=== PATIENT | male | born 1950 | race Caucasian/White ===

== ENCOUNTER → 2018-03-17 06:42 | Outpatient (CLI) | payer OTHER, SELFPAY ==
[2018-03-17 08:53] LABS: Creatinine Urine Random 123.6 mg/dL
[2018-03-17 08:58] LABS: Microalbumi Creatinin Ratio Ur 8.8 ug/mg CR (<30); Microalbumin Urine Random 1.1 mg/dL (0-1.6)
[2018-03-17 09:06] LABS: Blood Urea Nitrogen 14 mg/dL (9-20); Calcium 9.6 mg/dL (8.4-10.2); Carbon Dioxide 30 mmol/L (22-32); Chloride 106 mmol/L (98-107); Estimated Glomerular Filt Rate > 60.0 mL/min (>60); Glucose 92 mg/dL (80-110); HEMOLYSIS < 15 (0-50); Potassium 4.8 mmol/L (3.4-5.1); Sodium 146 mmol/L (137-145)
== END ==
PROVIDERS: PCP Family Medicine; Visit Provider Family Medicine
DX: R97.20 Elevated prostate specific antigen [PSA] (principal)
CPT/HCPCS: 36415; 80048; 82043; 82570; 84153

== ENCOUNTER → 2018-12-21 13:39 | Outpatient (CLI) | payer OTHER, SELFPAY | PROVIDERS: Family Provider Family Medicine; PCP Family Medicine; Visit Provider Podiatrist | DX: Z01.818 Encounter for other preprocedural examination (principal) | CPT/HCPCS: 93005 ==

== ENCOUNTER → 2019-04-14 16:05 | Outpatient (CLI) | payer OTHER, SELFPAY ==
--- NOTE | 2019-04-14 16:08 | DI.RAD.S_ITS ---
PROCEDURE: XR ELBOW LT MIN 3V INDICATIONS: left elbow pain TECHNIQUE: 3 views of the elbow were acquired. COMPARISON: None. FINDINGS: Bones: No fractures or dislocations. No suspicious bony lesions. There is osseous fragment adjacent to medial epicondyle, likely related to medial epicondylitis. Mild degenerative joint disease in elbow. Soft tissues: No elbow joint effusion. Cannot rule out a small infarct or body adjacent to the radial head. IMPRESSION: 1. Suspect medial epicondylitis. 2. Mild degenerative joint disease. 3. Possible small interarticular bodies. 4. Possible intra-articular body adjacent to the radial head. Dictated by: Jamal Pavon M.D. on 04/14/2019 at 17:54 Approved by: Jamal Pavon M.D. on 04/14/2019 at 17:56
[2019-04-14 17:44] LABS: Add Manual Diff / Slide Review NO; Basophils Absolute Auto 0 /uL (0-100); Basophils Percent Auto 0.5 % (0-2); Eosinophils Absolute Auto 100 /uL (0-450); Eosinophils Percent Auto 1.7 % (2-4); Hematocrit 43.8 % (41-53); Hemoglobin 14.7 g/dL (13.5-17.5); Lymphocytes Absolute Auto 1800 /uL (1100-4500); Lymphocytes Percent Auto 27.3 % (25-40); Mean Corpuscular HGB Conc 33.6 % (30-36); Mean Corpuscular Hemoglobin 31.9 PG (26-34); Mean Corpuscular Volume 95.1 fL (80-100); Monocytes Absolute Auto 500 /uL (0-900); Monocytes Percent Auto 7.7 % (3-14); Neutrophils Absolute Auto 4200 /uL (1500-7000); Neutrophils Percent Auto 62.8 % (50-75); Platelet Count 328 X10^3/uL (150-400); Red Cell Distribution Width 14.6 % (11.6-14.8); White Blood Cell Count 6.7 X10^3/uL (4.5-11.0)
[2019-04-14 17:56] LABS: Uric Acid 5.2 mg/dL (3.5-8.5)
== END ==
PROVIDERS: Family Provider Family Medicine; PCP Family Medicine; Visit Provider Nurse Practitioner Family
DX: M25.522 Pain in left elbow (principal); M19.022 Primary osteoarthritis, left elbow
CPT/HCPCS: 36415; 73080; 84550; 85025

== ENCOUNTER → 2019-12-14 07:09 | Outpatient (CLI) | payer OTHER, SELFPAY ==
[2019-12-14 08:09] LABS: Add Manual Diff / Slide Review NO; Basophils Absolute Auto 0 /uL (0-100); Basophils Percent Auto 0.6 % (0-2); Eosinophils Absolute Auto 200 /uL (0-450); Eosinophils Percent Auto 3.8 % (2-4); Hematocrit 43.3 % (41-53); Hemoglobin 14.9 g/dL (13.5-17.5); Lymphocytes Absolute Auto 1700 /uL (1100-4500); Lymphocytes Percent Auto 26.9 % (25-40); Mean Corpuscular HGB Conc 34.5 % (30-36); Mean Corpuscular Hemoglobin 32.9 PG (26-34); Mean Corpuscular Volume 95.4 fL (80-100); Monocytes Absolute Auto 600 /uL (0-900); Monocytes Percent Auto 9.4 % (3-14); Neutrophils Absolute Auto 3800 /uL (1500-7000); Neutrophils Percent Auto 59.3 % (50-75); Platelet Count 324 X10^3/uL (150-400); Red Blood Cell Count 4.54 X10^6/uL (4.5-5.9); Red Cell Distribution Width 14.4 % (11.6-14.8); White Blood Cell Count 6.3 X10^3/uL (4.5-11.0)
[2019-12-14 08:23] LABS: BUN Creatinine Ratio 15.5 (6-22); Blood Urea Nitrogen 15 mg/dL (9-20); Carbon Dioxide 28 mmol/L (22-32); Chloride 108 mmol/L (98-107); Cholesterol 200 mg/dL (140-199); Estimated Glomerular Filt Rate > 60.0 mL/min (>60); Glucose 96 mg/dL (80-110); HDL Cholesterol 50 mg/dL (40-60); HEMOLYSIS < 15 (0-50); LDL Cholesterol Calculated 112 mg/dL (<100); Potassium 4.3 mmol/L (3.4-5.1); Sodium 142 mmol/L (137-145); Triglycerides 188 mg/dL (35-150)
[2019-12-14 08:51] LABS: Prostate Specific Antigen 3.62 ng/mL (0.10-4.00)
== END ==
PROVIDERS: Family Provider Family Medicine; PCP Family Medicine; Referring Provider Family Medicine; Visit Provider Family Medicine
DX: Z12.11 Encounter for screening for malignant neoplasm of colon (principal); Z12.5 Encounter for screening for malignant neoplasm of prostate; Z13.220 Encounter for screening for lipoid disorders
CPT/HCPCS: 36415; 80048; 80061; 84153; 85025

== ENCOUNTER → 2020-05-11 08:45 | Outpatient (CLI) | payer OTHER, SELFPAY ==
[2020-05-12 18:29] LABS: COVID19 Sendout Positive (Not Detect)
== END ==
PROVIDERS: Family Provider Family Medicine; PCP Family Medicine; Visit Provider Physician Assistant
DX: U07.1 COVID-19 (principal)
CPT/HCPCS: 87635

== ENCOUNTER → 2020-05-23 08:56 | Outpatient (CLI) | payer OTHER, SELFPAY ==
[2020-05-23 11:38] LABS: COVID19 -Nasal RAPID Negative (Negative)
== END ==
PROVIDERS: Family Provider Family Medicine; PCP Family Medicine; Visit Provider Physician Assistant
DX: Z11.59 Encounter for screening for other viral diseases (principal)
CPT/HCPCS: 87635

== ENCOUNTER → 2020-08-23 07:12 | Outpatient (CLI) | payer OTHER, SELFPAY ==
[2020-08-23 08:28] LABS: Add Manual Diff / Slide Review NO; Basophils Absolute Auto 0 /uL (0-100); Basophils Percent Auto 0.8 % (0-2); Eosinophils Absolute Auto 200 /uL (0-450); Eosinophils Percent Auto 3.6 % (2-4); Hematocrit 45.7 % (41-53); Hemoglobin 14.9 g/dL (13.5-17.5); Lymphocytes Absolute Auto 1400 /uL (1100-4500); Lymphocytes Percent Auto 23.2 % (25-40); Mean Corpuscular HGB Conc 32.6 % (30-36); Mean Corpuscular Hemoglobin 31.7 PG (26-34); Monocytes Absolute Auto 400 /uL (0-900); Monocytes Percent Auto 6.9 % (3-14); Neutrophils Absolute Auto 3900 /uL (1500-7000); Neutrophils Percent Auto 65.5 % (50-75); Platelet Count 293 X10^3/uL (150-400); Red Blood Cell Count 4.71 X10^6/uL (4.5-5.9); Red Cell Distribution Width 14.9 % (11.6-14.8)
[2020-08-23 08:59] LABS: Alanine Aminotransferase 21 IU/L (<50); Albumin Globulin Ratio 1.4 (1.0-2.8); Alkaline Phosphatase 55 U/L (38-126); Aspartate Aminotransferase 24 IU/L (17-59); BUN Creatinine Ratio 17.8 (6-22); Bilirubin Total 0.3 mg/dL (0.2-1.3); Blood Urea Nitrogen 18 mg/dL (9-20); Calcium 8.9 mg/dL (8.4-10.2); Carbon Dioxide 33 mmol/L (22-32); Chloride 106 mmol/L (98-107); Cholesterol 197 mg/dL (140-199); Estimated Glomerular Filt Rate > 60.0 mL/min (>60); Globulin 2.9 g/dL (1.7-4.1); Glucose 101 mg/dL (80-110); HDL Cholesterol 59 mg/dL (40-60); HEMOLYSIS < 15 (0-50); LDL Cholesterol Calculated 120 mg/dL (<100); Potassium 4.6 mmol/L (3.4-5.1); Sodium 140 mmol/L (137-145); Total Protein 6.9 g/dL (6.3-8.2); Triglycerides 89 mg/dL (35-150)
[2020-08-23 09:05] LABS: C-Reactive Protein Quant < 0.5 mg/dL (<1.0); Rheumatoid Factor < 8.6 IU/mL (<12.0)
[2020-08-23 09:26] LABS: Erythrocyte Sedimentation Rate 3 MM/HR (0-15); Prostate Specific Antigen 4.92 ng/mL (0.10-4.00)
[2020-08-27 22:36] LABS: CCP Antibodies IgG/IgA 6 units (0-19)
== END ==
PROVIDERS: Family Provider Family Medicine; PCP Family Medicine; Referring Provider Family Medicine; Visit Provider Family Medicine
DX: E78.2 Mixed hyperlipidemia (principal); I10 Essential (primary) hypertension; M25.541 Pain in joints of right hand; M25.542 Pain in joints of left hand; N40.0 Benign prostatic hyperplasia without lower urinary tract symptoms
CPT/HCPCS: 36415; 80053; 80061; 84153; 85025; 85651; 86140; 86200; 86430

== ENCOUNTER → 2020-08-25 14:56 | Outpatient (CLI) | payer OTHER, SELFPAY ==
--- NOTE | 2020-08-25 14:58 | DI.MRI.S_ITS ---
PROCEDURE: MR SHOULDER LT WO CON INDICATIONS: BURSITIS OF LEFT SHOULDER TECHNIQUE: Noncontrast oblique coronal T2 fast spin echo with fat saturation, oblique sagittal T1 spin echo and T2 fast spin echo with fat saturation, axial T1 spin echo and T2 fast spin echo with fat saturation through the shoulder. COMPARISON: [facility] [place], CR, XR SHOULDER 2+ VIEWS LEFT, 08/06/2020, 14:55. FINDINGS: Image quality: Excellent. Rotator cuff: There is full-thickness tearing of the supraspinatus tendon approximately 1 cm from its distal insertion, measuring approximately 1.5 cm in anterior-posterior dimension. There is approximately 2 mm proximal retraction of the supraspinatus tendon. There is moderate grade partial bursal sided tearing of the anterior half of the infraspinatus tendon. Findings are superimposed on tendinosis. There is moderate tendinosis and low grade intrasubstance tearing of the subscapularis tendon at the distal insertion. There is no significant rotator cuff muscle atrophy. Fluid is seen tracking medially along the supraspinatus muscle. Bones and bursae: There is no acute trabecular bone injury. Mild chronic traction cystic changes are seen at the greater tuberosity. Minimal degenerative spurring is seen in the glenoid rim. Moderate acromioclavicular degenerative changes. Fluid in the subacromial/subdeltoid bursa communicates with the glenohumeral joint space. Capsule and soft tissues: There is nondisplaced tearing of the superior labrum that likely extends into the posterior labrum. No paralabral cyst is seen. There is tendinosis of the biceps long head tendon with perching along the medial aspect of the bicipital groove. There is partial effacement of the fat in the rotator interval.The inferior glenohumeral ligament is normal in thickness. IMPRESSION: 1. Full-thickness tearing of the supraspinatus tendon approximately 1 cm from its insertion onto the greater tuberosity measuring 1.5 cm in anterior-posterior dimension. There is minimal proximal tendon retraction measuring 0.2 cm. 2. Moderate grade partial bursal sided tearing of the anterior infraspinatus tendon superimposed on tendinosis. 3. Moderate tendinosis and low grade intrasubstance tearing of the subscapularis tendon at the distal insertion. 4. Mild biceps long head tendinosis with perching along the medial aspect of the bicipital groove. 5. Nondisplaced tearing of the superior labrum that likely extends into the posterior labrum. 6. Moderate acromioclavicular joint osteoarthrosis. Dictated by: Renzo Ventura M.D. on 08/27/2020 at 10:14 Approved by: Renzo Ventura M.D. on 08/27/2020 at 10:24
== END ==
PROVIDERS: Family Provider Family Medicine; PCP Family Medicine; Referring Provider Family Medicine; Visit Provider Physical Medicine & Rehabilitation Pain Medicine
DX: M75.52 Bursitis of left shoulder (principal); M75.122 Complete rotator cuff tear or rupture of left shoulder, not specified as traumatic; M19.012 Primary osteoarthritis, left shoulder
CPT/HCPCS: 73221

== ENCOUNTER → 2021-07-31 09:58 | Outpatient (CLI) | payer OTHER, SELFPAY ==
[2021-07-31 12:02] LABS: COVID19 -Nasal RAPID Negative (Negative)
== END ==
PROVIDERS: Family Provider Family Medicine; PCP Family Medicine; Visit Provider Surgery
DX: Z01.812 Encounter for preprocedural laboratory examination (principal); Z20.822 Contact with and (suspected) exposure to COVID-19
CPT/HCPCS: 87635; C9803

== ENCOUNTER 2021-08-01 06:25 | Day surgery (SDC) | payer OTHER, SELFPAY ==
--- NOTE | 2021-08-01 | PATH_ITS ---
[facility] Accession Number: [id number] . 01 Material submitted: . PART A: colon - ASCENDING COLON POLYPS X3 PART B: colon - TRANSVERSE COLON POLYP @ 75 CM PART C: colon - SIGMOID COLON POLYP @ 30 CM . 02 Diagnosis: A. Ascending Colon Polyps x3: Portions of tubular adenoma x3. . B. Transverse Colon Polyp at 75 cm: Tubular adenoma. . C. Sigmoid Colon Polyp at 30 cm: Tubular adenoma. MRV 08/05/2021 1126 Local . 02 Electronically signed: . Lillian Mcnally MD, Pathologist NPI- [id number] . 01 Gross description: . Part A: ASCENDING COLON POLYPS X3: Received in formalin are 3 fragment(s) of mata, soft tissue measuring 0.6 x 0.4 x 0.3 cm to 0.4 x 0.3 x 0.3 cm submitted entirely in 1 cassette(s) Part B: TRANSVERSE COLON POLYP @ 75 CM: Received in formalin is 1 fragment(s) of mata, soft tissue measuring 0.9 x 0.8 x 0.5 cm which is inked, trisected and submitted entirely in 1 cassette(s) Part C: SIGMOID COLON POLYP @ 30 CM: Received in formalin is 1 fragment(s) of mata, soft tissue measuring 0.3 x 0.3 x 0.3 cm submitted entirely in 1 cassette(s) /[facility] 08/02/2021 1253 Local . 02 Pathologist provided ICD-10: K63.5 . 02 CPT . 346929, 576196, 313295 Performed at: 01 [facility] [address], [place], [place] [id number] MD Carl Crabtree MD Phone: [phone] Performed at: 02 [facility] [id number] [place] [id number] MD Alessia Moser MD Phone: [phone]
[2021-08-01 06:44] VITALS: BP 139/74; PULSE 93; RESP 18; TEMP 36.8; O2SAT 95; BMI 29.0
[2021-08-01] MEDS: LACTATED RINGERS 1,000 ML 84 ML IV (06:56)
--- NOTE | 2021-08-01 08:09 | PM.HP.1 ---
History of Present Illness History of Present Illness Date Patient Seen: 08/01/21 Time Patient Seen: 08:09 Chief complaint: SDC Narrative: 71-year-old man who had a colonoscopy about 9 years ago. Had no concerning findings that time he believes. He believes his dad had colon cancer. No rectal bleeding or melena. No other concerning changes to his history recently. Patient History Medical History (Updated 08/01/21 @ 08:11 by Harley Cameron MD) Actinic keratoses Actinic keratosis Acute upper back pain Anxiety Benign prostatic hyperplasia BPH (benign prostatic hyperplasia) Cervical somatic dysfunction Cervicothoracic somatic dysfunction Chronic neck pain Constipation due to opioid therapy Dermatochalasis of both eyelids Fracture of left tibia and fibula GERD (gastroesophageal reflux disease) Hyperlipidemia, mixed Hypertension Joint pain in both hands Left arm pain Plantar fasciitis of left foot Rupture of left rotator cuff Sebaceous cyst Segmental and somatic dysfunction of thoracic region Segmental and somatic dysfunction of upper extremity Trigger finger of both hands Umbilical hernia (~04/2012) Undescended right testicle Surgical History History of esophagogastroduodenoscopy (EGD) (05/2009) History of open reduction and internal fixation (ORIF) procedure Hx of hernia repair (04/2012) Family & Social History Family History (Updated 03/30/18 @ 09:32 by Puja Thomas LPN) Father Prostate cancer Colon cancer Brother Cancer Social History: household members spouse Tobacco & Substance use: Tobacco type cigarettes Smoking Status Current every day smoker alcohol intake current alcohol intake frequency 0-2 drinks per day Substance Use Type does not use Meds Home Medications and Allergies Home Medications Medication Instructions Recorded Confirmed Type triamcinolone acetonide 0.1 % 1 applictn TOPICAL HS #15 gram 10/31/19 05/09/21 Rx topical cream varicella-zoster glycoE [id number] 0.5 ml IM ONCE #1 ea 07/18/20 05/09/21 Rx adj(PF) 50 mcg/0.5 mL IM susp, kit (Shingrix (PF)) lidocaine 5 % topical patch 1 patch TRANSDERMAL DAILY ea 08/22/20 05/09/21 History losartan 50 mg tablet See Rx Instructions .ROUTE 06/05/21 Rx .COMPLEX #90 tab pantoprazole 40 mg tablet,delayed See Rx Instructions .ROUTE 06/05/21 Rx release .COMPLEX #90 tab tamsulosin 0.4 mg capsule See Rx Instructions .ROUTE 06/05/21 Rx .COMPLEX #180 cap Allergies Allergy/AdvReac Type Severity Reaction Status Date / Time lactose [LACTOSE] AdvReac Intermediate BLOATED Verified 08/01/21 06:40 Exam Vital Signs (past 8 hours): - 08/01/21 06:44 Temperature 98.3 F Pulse Rate 93 H Respiratory Rate 18 Blood Pressure 139/74 Pulse Oximetry 95 Oxygen Delivery Method Room Air Const General: healthy appearing Resp Effort & Inspection: normal respiratory effort GI Palpation: soft Assessment & Plan Assessment and plan (1) Colon cancer screening: Status: Acute Plan We reviewed the risks and benefits of colonoscopy for colon cancer screening. He would like to proceed. The procedure is necessary to perform because if he has colon cancer timely diagnosis is important to prevent deterioration of health or potentially . COVID-19 COVID-19 status: Negative Result date/Date tested (Pos, Neg/Pending): 08/01/21 Time Spent With Patient Critical Care time: I spent a total of [] minutes of critical care time on this patient's care today; this time is exclusive of procedural time.
[2021-08-01] MEDS: MIDAZOLAM 5 MG/5 ML VIAL IV (08:33)
[2021-08-01] MEDS: fentaNYL 250 MCG/5 ML INJ IV (08:33)
--- NOTE | 2021-08-01 09:32 | PM.OP.COLON ---
Operative Date/Time/Diagnoses Date of procedure: 08/01/21 Time of procedure: 09:32 Pre-op diagnosis: Colon cancer screening Post-op diagnosis: same Procedure & Clinicians Study performed: Colonoscopy Same procedure as scheduled: Yes Surgeon: Harley Cameron Procedure Notes SCOAP/Timeout: Yes Procedure in detail: Procedure: The patient was brought to the endoscopy suite, placed in left lateral decubitus position. The patient was connected to monitoring devices. A time-out was performed. Sedation was administered. Once the patient was adequately sedated, a digital rectal exam was performed and was normal. The scope was then inserted and advanced to the cecum where the appendiceal orifice was identified and photographed. The scope was then slowly withdrawn over greater than 6 minutes. Mucosa was thoroughly inspected. We noted 3 small polyps in the ascending colon. We removed these with cold snare and sent them together. Next we found a polyp in the transverse colon at roughly 75 cm which was about a cm and flat. We performed a saline lift and removed the polyp with hot snare. There was the fragment of plastic from the injection device that became dislodged and remained in the colon. We then brought in the Leonardo Net and attempted to capture the polyp and the plastic fragment at the same time but we could only capture the polyp. This polyp was removed and sent as ?sigmoid polyp?. We went back in and this time we used a Jumbo forceps to grab the plastic fragment and removed it from the colon. This appeared to be a protective cover that was over the injection needle which had not been removed. We then went back in and placed in ink tattoo across from the polypectomy site in the transverse colon. The scope was further withdrawn. There were multiple small sigmoid diverticula. There was a small polyp in the sigmoid colon which was removed with cold snare and sent as sigmoid polyp. The remainder of the colon and rectum were normal. The scope was retroflexed in the rectum. No abnormalities were noted there. The scope was straightened and removed. The patient was awakened and brought to recovery. Findings: 3 small ascending colon polyps less than a cm, 1 cm transverse colon polyp, small sigmoid colon polyp was less than a cm and scattered sigmoid diverticula. Versed: 6 mg Fentanyl: 175 mcg EBL: 5 mL Scope withdrawal time: 51 Sedation minutes: 75 Findings: divertiulosis and polyp(s) Post-procedure Recommendations: Will call with biopsy results
[2021-08-01 09:33] VITALS: BP 103/61; PULSE 70; RESP 16; TEMP 37; O2SAT 94
[2021-08-01 09:53] VITALS: BP 112/61; PULSE 69; RESP 18; TEMP 36.7; O2SAT 95
--- NOTE | 2021-08-01 10:13 | SUR.PHASEII ---
Was in the endoscopy for 1 1/2 hours. Last dose of sedation 1 hour prior to dropping off in recovery. Sent to phase II bypassing phase I. Perfectly stable. Sent home in half an hour
== END 2021-08-01 10:03 | disposition home or self-care (01) ==
PROVIDERS: Family Provider Family Medicine; PCP Family Medicine; Referring Provider Surgery; Visit Provider Surgery
PROC: 0DJD8ZZ Inspection of Lower Intestinal Tract, Via Natural or Artificial Opening Endoscopic (ICD-10-PCS; CPT 45378; principal; 2021-08-01 07:45)
DX: Z12.11 Encounter for screening for malignant neoplasm of colon (principal); E78.5 Hyperlipidemia, unspecified; I10 Essential (primary) hypertension; K21.9 Gastro-esophageal reflux disease without esophagitis; F17.210 Nicotine dependence, cigarettes, uncomplicated; D12.2 Benign neoplasm of ascending colon; D12.3 Benign neoplasm of transverse colon; D12.5 Benign neoplasm of sigmoid colon
CPT/HCPCS: 45381; 45385; 99152; 99153; J2250; J3010

== ENCOUNTER → 2022-02-06 14:31 | Outpatient (CLI) | payer OTHER, SELFPAY ==
--- NOTE | 2022-02-06 14:34 | DI.RAD.S_ITS ---
PROCEDURE: XR HAND LT MIN 3V INDICATIONS: chronic left hand numbness and pain, past left hand surgery TECHNIQUE: 3 views of the hand(s) acquired. COMPARISON: None. FINDINGS: Bones: No fractures or dislocations. Carpal bones are normally aligned. No suspicious bony lesions. Mild 2nd and 3rd MCP joint space narrowing with periarticular osteophyte formation and juxta-articular lucencies. Hook osteophytes are present. Soft tissues: No suspicious soft tissue calcifications. IMPRESSION: 1. 2nd and 3rd MCP joint space narrowing with juxta-articular lucencies and hook osteophytes which can be associated with inflammatory arthropathy. Dictated by: Maulik Crowder [facility] Interpreted: Yuliana Faria MD on 02/06/2022 at 15:47 Transcribed by: BRE on 02/06/2022 at 15:48 Approved by: Yuliana Faria M.D. on 02/06/2022 at 17:28
== END ==
PROVIDERS: Family Provider Family Medicine; PCP Family Medicine; Referring Provider Pediatrics; Visit Provider Pediatrics
DX: M79.642 Pain in left hand (principal); M25.742 Osteophyte, left hand
CPT/HCPCS: 73130

== ENCOUNTER → 2022-11-25 10:33 | Outpatient (CLI) | payer OTHER, SELFPAY ==
--- NOTE | 2022-11-25 10:34 | DI.RAD.S_ITS ---
PROCEDURE: XR CHEST 2V INDICATIONS: pain TECHNIQUE: 2 views of the chest were acquired. COMPARISON: [facility], , CHEST 2 VIEW, 02/07/2015, 8:51. FINDINGS: Surgical changes and devices: None. Lungs and pleura: Lungs are clear. No pleural effusions or pneumothorax. Mediastinum: Mediastinal contours are normal. Heart size is mildly enlarged. Bones and chest wall: No suspicious bony abnormalities. Soft tissues appear unremarkable. IMPRESSION: No acute pulmonary process. Dictated by: Yuliana Faria M.D. on 11/25/2022 at 17:49 Approved by: Yuliana Faria M.D. on 11/25/2022 at 17:49
== END ==
PROVIDERS: Family Provider Family Medicine; PCP Family Medicine; Referring Provider Family Medicine; Visit Provider Family Medicine
DX: R07.81 Pleurodynia (principal)
CPT/HCPCS: 71046

== ENCOUNTER → 2023-04-25 13:05 | Outpatient (CLI) | payer OTHER, SELFPAY | PROVIDERS: Family Provider Family Medicine; PCP Family Medicine; Visit Provider Registered Nurse | DX: R30.0 Dysuria (principal) | CPT/HCPCS: 87077; 87086; 87186 ==

== ENCOUNTER → 2023-05-14 15:04 | Outpatient (CLI) | payer OTHER, SELFPAY ==
[2023-05-14 18:30] LABS: Blood Urea Nitrogen 15 mg/dL (9-20); Calcium 8.9 mg/dL (8.4-10.2); Carbon Dioxide 26 mmol/L (22-32); Chloride 106 mmol/L (98-107); Estimated Glomerular Filt Rate > 60 mL/min (>60); Glucose 83 mg/dL (80-110); HEMOLYSIS < 15 (0-50); Potassium 4.5 mmol/L (3.4-5.1); Sodium 139 mmol/L (137-145)
[2023-05-14 19:00] LABS: Prostate Specific Antigen Scrn 4.06 ng/mL (0.1-4.0)
== END ==
PROVIDERS: Family Provider Family Medicine; PCP Family Medicine; Referring Provider Urology; Visit Provider Urology
DX: Z12.5 Encounter for screening for malignant neoplasm of prostate (principal); N30.01 Acute cystitis with hematuria; N40.1 Benign prostatic hyperplasia with lower urinary tract symptoms; R39.198 Other difficulties with micturition; R39.12 Poor urinary stream; R30.0 Dysuria; R82.81 Pyuria; Z72.0 Tobacco use
CPT/HCPCS: 36415; 51798; 80048; 81002; 87086; 99214; G0103

== ENCOUNTER → 2023-05-22 12:42 | Outpatient (CLI) | payer OTHER, SELFPAY ==
--- NOTE | 2023-05-22 12:43 | DI.CT.S_ITS ---
PROCEDURE: CT ABDOMEN PELVIS WO/W CON INDICATIONS: Gross hematuria, tobacco use TECHNIQUE: Optional 5 mm thick noncontrast images acquired from the diaphragm to the symphysis pubis. After the administration of intravenous contrast, 5 mm thick images acquired from the diaphragm to the symphysis pubis after a 10-minute delay. 2 mm thick coronal and sagittal reformats were then performed of the kidneys and ureters. For radiation dose reduction, the following was used: automated exposure control, adjustment of mA and/or kV according to patient size. COMPARISON: None. FINDINGS: Image quality: Excellent. Lung bases: Lung bases are clear. Heart size is normal. Urinary system: Both kidneys are normal in size, without hydronephrosis or nephrolithiasis on pre-contrast images. No perinephric fat stranding. There is normal bilateral renal enhancement. Several water density simple appearing renal cortical cysts are seen bilaterally. Renal calyces appear normal in morphology when filled with contrast. There are several small right-sided peripelvic cysts. Opacified portions of both ureters demonstrate normal caliber. Bladder wall thickness is generally normal, but there is a subtle finding of slight asymmetric thickening of the periureteral bladder wall internally adjacent to the right side ureteral orifice. No calcified bladder stones. Note is made of a 2.7 cm left posterolateral bladder wall diverticulum communicating with the bladder lumen through a 5 mm diameter orifice. Other solid organs: Liver is normal in size and enhancement. Gallbladder appears to contain scattered faintly calcified gallstones but no inflammation or biliary distension is seen. Biliary system is non dilated. Pancreas enhances normally. Spleen is normal in size and enhancement. No adrenal nodules. Peritoneum and bowel: Bowel loops demonstrate normal wall thickness and caliber. No free fluid or air. Nodes and vessels: No retroperitoneal or mesenteric adenopathy by size criteria. Aorta and inferior vena cava are normal in size. Abdominal wall: No ventral hernias. Pelvis: No pathologic free pelvic fluid. No inguinal hernias or adenopathy. Bones: No suspicious bony lesions. No vertebral body compression fractures. IMPRESSION: 1. No urinary tract stone is seen throughout. 2. There is a subtle plaque-like thickening with slight nodularity at the right posterolateral bladder mucosal surface at and immediately adjacent to the right ureteral orifice. Note is also made of a small left posterolateral bladder diverticulum which communicates to the bladder lumen through a 5 mm orifice. 3. Multiple slightly calcified gallstones are suspected within the gallbladder lumen, and would be more accurately assessed by targeted gallbladder ultrasound. No gallbladder inflammation or biliary dilatation is seen. Dictated by: Emanuel Swann M.D. on 05/22/2023 at 15:27 Approved by: Emanuel Swann M.D. on 05/22/2023 at 15:37
== END ==
PROVIDERS: Family Provider Family Medicine; PCP Family Medicine; Referring Provider Urology; Visit Provider Urology
DX: N32.3 Diverticulum of bladder (principal); K80.20 Calculus of gallbladder without cholecystitis without obstruction; R31.0 Gross hematuria; Z72.0 Tobacco use
CPT/HCPCS: 74178; Q9967

== ENCOUNTER → 2023-07-01 14:10 | Outpatient (CLI) | payer OTHER, SELFPAY | PROVIDERS: Family Provider Family Medicine; PCP Family Medicine; Visit Provider Urology | DX: R31.0 Gross hematuria (principal); N32.3 Diverticulum of bladder | CPT/HCPCS: 51798; 52000; 81002; 87086 ==

== ENCOUNTER → 2023-07-16 14:13 | Outpatient (CLI) | payer OTHER, SELFPAY | PROVIDERS: Family Provider Family Medicine; PCP Family Medicine; Visit Provider Urology | DX: R31.0 Gross hematuria (principal); N40.1 Benign prostatic hyperplasia with lower urinary tract symptoms; R39.12 Poor urinary stream; N32.9 Bladder disorder, unspecified; Z72.0 Tobacco use | CPT/HCPCS: 81002; 87077; 87086; 87147; 87186; 99214 ==

== ENCOUNTER 2023-07-21 09:21 | Day surgery (SDC) | payer OTHER, SELFPAY ==
[2023-07-17 10:33] VITALS: BMI 28.3
--- NOTE | 2023-07-21 | PATH_ITS ---
[facility] Accession Number: [id number] No. of containers..01 Tissue . 01 Material submitted: . bladder - BLADDER LESION . 01 Diagnosis: Bladder Lesion, Biopsy: Minute fragment of squamous epithelium with no significant pathologic alterations, compatible with metaplastic changes. No dysplasia or malignancy. MRV 07/24/2023 1517 Local . 01 Comment: As part of ongoing associate quality engineer, this case is also reviewed by Dr. Florencio Jarquin, who concurs with the given interpretation. . 01 Electronically signed: . Rosa Maria Cuba MD, Pathologist NPI- [id number] . 01 Gross description: . BLADDER LESION: Received in formalin is 1 fragment(s) of mata, soft tissue measuring 0.1 x 0.1 x 0.1 cm submitted entirely in 1 cassette(s) /LAST 07/22/2023 2246 Local . 01 Pathologist provided ICD-10: N32.3 . 01 CPT . 910488 Specimen Comment: A courtesy copy of this report has been sent to [phone] Performed at: 01 [facility] [address] [place] [address], [place], [place] [id number] MD Carl Crabtree MD Phone: [phone]
[2023-07-21 09:53] VITALS: BMI 28.8
[2023-07-21 10:09] VITALS: BP 139/82; PULSE 92; RESP 17; TEMP 36.2; O2SAT 97
--- NOTE | 2023-07-21 10:15 | PM.PREOP ---
Pre-operative Note COVID-19 COVID-19 status: Not tested Interval Note History & Physical reviewed/Exam performed by Physician: Yes Changes to H&P: No
[2023-07-21] MEDS: ALBUTEROL/IPRATROPIUM 3 ML AMPUL INH (10:16)
[2023-07-21] MEDS: ACETAMINOPHEN 325 MG TABLET 975 MG PO (10:17)
[2023-07-21] MEDS: LACTATED RINGERS 1,000 ML 42 ML IV (10:18)
--- NOTE | 2023-07-21 10:18 | SUR.PREOP ---
See order for Duoneb after talking to Jodi OLIVERA on telephone in OR#4. Pt used spriva this am but not albuterol. Small expiratory wheeze right upper and lower posterior lobe
--- NOTE | 2023-07-21 10:23 | SUR.OPER ---
Lithotomy on padded OR bed, head on pillow, arms secured on padded arm boards at <90 degrees abduction. Legs secured in padded yellow fins stirrups.
[2023-07-21] MEDS: CEFAZOLIN 2 GM/100 ML PREMIX 100 ML IV (10:35)
--- NOTE | 2023-07-21 11:17 | PM.OP.1 ---
Procedure & Clinicians Procedure: Removal/biopsy of bladder lesion Same procedure as scheduled: Yes Indications: This 73-year-old male presented for workup of hematuria was found to have in a left sided diverticula abnormal appearing mucosa/bladder lesion. He presents at this time for biopsy/removal of this area. Surgeon: Gilbert Kowalski Click Yes if Unassisted: Yes Anesthesia Type: General Operative Notes Findings: Urethral meatus and urethra normal with normal mucosa. Sphincter as well coapted. The prostate exhibits moderate approaching severe obstructive character with a high bladder neck. Ureteral orifices in normal position with clear efflux. The left lateral wall there is a diverticula the mucosa of which is somewhat abreu fluffy abnormal compared to the surrounding tissue. The diverticula appears to abut 1 of the iliac vessels has a pulsation is observed within the bladder there are no other mucosal lesions that are worrisome. There are other diverticula. Of note the area was likely incompletely resected. Closure Type: not applicable Specimen(s): other (Biopsy bladder lesion) Prosthetic devices, grafts, tissues, transplants, or devices: None Estimated Blood Loss (mL): 5 Blood products transfused: none Procedure in detail: Procedure in detail: After informed consent was obtained, the patient was identified brought to the operating room where he was placed in a supine position on the operative table. Once there he had anesthesia induced and maintained. Showing an adequate level of anesthesia the patient was transitioned to the lithotomy position where he was prepped, draped, prepared for Transurethral procedure. After prepping, draping, ensuring an adequate level of anesthesia, time-out, antibiotics a 22 [place]an cystoscope was passed through the urethra and into the bladder where cystoscopy was performed. With the area identified the continuous-flow resectoscope was inserted and the loop was used to ?scraped? the lesion free. This was less than satisfactory and that it made difficult to collect the sample. At this point the resectoscope was exchanged for a cystoscope and a biopsy forceps inserted and some of the loose material and mucosa of was then biopsied away with the biopsy forceps. A Bugbee electrode was then inserted and the bleeding vessels were judiciously cauterized giving the location and proximity to what appeared to be the iliac vessel just under the bladder wall. With this the bleeding was stopped hemostasis was achieved. Most of the lesion had been removed with the loop and being satisfied with this and fearing complications with the iliac vessel the procedure at this point was stopped. The bladder was filled drained filled drained hemostasis remained good the bladder was drained the scope was removed and the patient was awakened having tolerated the procedure well the specimen was forwarded to pathology for examination. There were no complications patient was transferred to the postanesthesia care unit for recovery. Complications: none Post-operative Condition: stable Disposition: PACU Plan for aftercare: Patient to follow up my office in approximately 10-14 days
[2023-07-21 11:20] VITALS: BP 100/59; PULSE 69; RESP 9; TEMP 36.6; O2SAT 97
[2023-07-21 11:25] VITALS: BP 113/65; PULSE 64; RESP 12; O2SAT 99
[2023-07-21 11:30] VITALS: BP 110/64; PULSE 71; RESP 14; O2SAT 92
== END 2023-07-21 12:05 | disposition home or self-care (01) ==
PROVIDERS: Family Provider Family Medicine; PCP Family Medicine; Referring Provider Urology; Visit Provider Urology
PROC: 0TBB8ZZ Excision of Bladder, Via Natural or Artificial Opening Endoscopic (ICD-10-PCS; CPT 52235; principal; 2023-07-21 11:00)
DX: N32.3 Diverticulum of bladder (principal); N32.89 Other specified disorders of bladder; Z72.0 Tobacco use; R31.0 Gross hematuria; N40.1 Benign prostatic hyperplasia with lower urinary tract symptoms; R39.12 Poor urinary stream
CPT/HCPCS: 52235; 82962; J0690; J1100; J1885; J2405; J3010

== ENCOUNTER → 2023-10-19 11:13 | Outpatient (CLI) | payer OTHER, SELFPAY ==
[2023-10-19 12:11] LABS: Add Manual Diff / Slide Review NO; Basophils Absolute Auto 0 /uL (0-100); Basophils Percent Auto 0.7 % (0-2); Eosinophils Absolute Auto 200 /uL (0-450); Eosinophils Percent Auto 2.7 % (2-4); Hematocrit 46.9 % (41-53); Hemoglobin 15.9 g/dL (13.5-17.5); Lymphocytes Absolute Auto 1500 /uL (1100-4500); Mean Corpuscular HGB Conc 33.9 % (30-36); Mean Corpuscular Hemoglobin 33.1 PG (26-34); Mean Corpuscular Volume 97.6 fL (80-100); Monocytes Absolute Auto 500 /uL (0-900); Monocytes Percent Auto 8.8 % (3-14); Neutrophils Absolute Auto 3900 /uL (1500-7000); Neutrophils Percent Auto 63.8 % (50-75); Platelet Count 277 X10^3/uL (150-400); Red Cell Distribution Width 14.9 % (11.6-14.8); White Blood Cell Count 6.1 X10^3/uL (4.5-11.0)
[2023-10-19 12:24] LABS: Alanine Aminotransferase 18 IU/L (<50); Albumin 3.7 g/dL (3.5-5.0); Albumin Globulin Ratio 1.3 (1.0-2.8); Alkaline Phosphatase 69 U/L (38-126); Aspartate Aminotransferase 19 IU/L (17-59); BUN Creatinine Ratio 18.3 (6-22); Bilirubin Total 0.5 mg/dL (0.2-1.3); Blood Urea Nitrogen 17 mg/dL (9-20); Calcium 8.9 mg/dL (8.4-10.2); Carbon Dioxide 29 mmol/L (22-32); Chloride 109 mmol/L (98-107); Cholesterol 201 mg/dL (140-199); Estimated Glomerular Filt Rate > 60 mL/min (>60); Globulin 2.8 g/dL (1.7-4.1); Glucose 114 mg/dL (80-110); HDL Cholesterol 59 mg/dL (40-60); HEMOLYSIS < 15 (0-50); LDL Cholesterol Calculated 132 mg/dL (<100); Potassium 4.6 mmol/L (3.4-5.1); Sodium 141 mmol/L (137-145); Total Protein 6.5 g/dL (6.3-8.2); Triglycerides 50 mg/dL (35-150)
[2023-10-19 13:30] LABS: Creatinine Urine Random 118.1 mg/dL
[2023-10-19 13:34] LABS: Microalbumi Creatinin Ratio Ur 6.7 ug/mg CR (<30); Microalbumin Urine Random 0.8 mg/dL (0-1.6)
[2023-10-19 20:17] LABS: TSH w/ Reflex to FT4 0.79 uIU/mL (0.47-4.68)
== END ==
PROVIDERS: Family Provider Family Medicine; PCP Family Medicine; Referring Provider Physician Assistant; Visit Provider Physician Assistant
DX: I10 Essential (primary) hypertension (principal); E78.2 Mixed hyperlipidemia; J44.9 Chronic obstructive pulmonary disease, unspecified; Z72.0 Tobacco use
CPT/HCPCS: 36415; 80053; 80061; 82043; 82570; 84443; 85025

== ENCOUNTER → 2023-10-19 12:08 | Outpatient (CLI) | payer OTHER, SELFPAY ==
--- NOTE | 2023-10-19 12:09 | DI.RAD.S_ITS ---
PROCEDURE: XR KNEE RT 3V INDICATIONS: posterior lateral R knee pain;sensation of giving way TECHNIQUE: 3 views of the knee were acquired. COMPARISON: None. FINDINGS: Bones: No fractures or dislocations. Tiny osteophytes at the lateral and patellofemoral compartments. No suspicious bony lesions. Soft tissues: Small joint effusion. No suspicious soft tissue calcifications. Chondrocalcinosis. IMPRESSION: [id number] right knee DJD. Small joint effusion. Chondrocalcinosis. Dictated by: Oneal Yousif M.D. on 10/19/2023 at 16:33 Approved by: Oneal Yousif M.D. on 10/19/2023 at 16:49
== END ==
PROVIDERS: Family Provider Family Medicine; PCP Family Medicine; Referring Provider Physician Assistant; Visit Provider Physician Assistant
DX: M17.11 Unilateral primary osteoarthritis, right knee (principal); M71.20 Synovial cyst of popliteal space [Baker], unspecified knee; M25.461 Effusion, right knee; M11.261 Other chondrocalcinosis, right knee; M25.561 Pain in right knee; I10 Essential (primary) hypertension; E78.2 Mixed hyperlipidemia; J44.9 Chronic obstructive pulmonary disease, unspecified; Z72.0 Tobacco use
CPT/HCPCS: 36415; 73562; 80053; 80061; 82043; 82570; 84443; 85025

== ENCOUNTER → 2023-11-11 14:13 | Outpatient (CLI) | payer OTHER, SELFPAY | PROVIDERS: Family Provider Family Medicine; PCP Family Medicine; Visit Provider Urology | DX: R39.9 Unspecified symptoms and signs involving the genitourinary system (principal) | CPT/HCPCS: 81002; 87086 ==

== ENCOUNTER → 2023-11-12 11:39 | Outpatient (CLI) | payer OTHER, SELFPAY ==
--- NOTE | 2023-11-12 11:40 | DI.MRI.S_ITS ---
PROCEDURE: MR LUMBAR SPINE WO CON INDICATIONS: Radiculopathy, lumbar region TECHNIQUE: Noncontrast sagittal T1 spin echo and T2 fast echo, sagittal STIR, and T2 fast spin echo through the lumbar spine. In cases with scoliosis, additional coronal T2 fast spin echo may be performed. COMPARISON: [facility], CR, XR LUMBAR SPINE 2 OR 3 VIEWS, 06/15/2023, 15:58. FINDINGS: Image quality: Diagnostic, with note made of motion artifact. Alignment and Curvature: There is mild retrolisthesis seen at L1-L2 and L2-L3. Bone Marrow: Marrow is of normal overall signal. No acute vertebral body compression fractures. Spinal Cord: Conus medullaris terminates at the L1 level. Visualized cord demonstrates normal signal and size. Paraspinous Soft Tissues: No paravertebral masses. Water signal left renal cysts can be seen. T12-L1: Feit-im-wegowgud loss of disc height and disc signal can be seen. No significant neural foraminal or central canal narrowing can be seen. L1-L2: Moderate loss of disc height is seen. Loss of disc signal is seen. Moderate generalized disc bulge is seen. There is a superimposed central disc protrusion. Mild facet joint hypertrophy is seen. There is at least moderate bilateral neural foraminal narrowing. Mild central canal narrowing is seen. L2-L3: Mild loss of disc height is seen. Loss of disc signal is seen. Moderate generalized disc bulge is seen. There is a superimposed central disc protrusion. Mild facet joint hypertrophy is seen. Moderate bilateral neural foraminal narrowing can be seen, left worse than right. Moderate central canal narrowing is seen. L3-L4: Moderate loss of disc height is seen. Loss of disc signal is seen. Reactive marrow endplate changes are seen posteriorly, which are hyperintense on T1-weighted and T2-weighted imaging and most consistent with fatty metaplasia (Modic type II changes). Moderate to prominent disc bulge is seen. There is a central disc osteophyte protrusion. Moderate facet hypertrophy can be seen, left worse than right. There is moderate to severe bilateral neural foraminal narrowing seen, with an associated degree of compression seen upon the exiting nerve roots. Moderate to severe central canal narrowing is seen, as on series 5, image 20. L4-L5: Mild loss of disc height is seen. Loss of disc signal is seen. Moderate disc bulge is seen, which is eccentric to the right. There is a superimposed central disc protrusion. Moderate to prominent facet hypertrophy is seen. There is moderate to severe bilateral neural foraminal narrowing seen, with an associated degree of compression seen upon the exiting nerve roots. Moderate central canal narrowing is seen. L5-S1: The disc height and disk signal are relatively well-preserved. Mild generalized disc bulge is seen. Mild facet joint hypertrophy is seen. No significant neural foraminal or central canal narrowing can be seen. IMPRESSION: Multiple levels of lumbar spine degenerative change can be seen, which are overall worst at the L3-L4 level. Dictated by: Ethan Alvarez M.D. on 11/12/2023 at 16:09 Approved by: Ethan Alvarez M.D. on 11/12/2023 at 16:14
== END ==
PROVIDERS: Family Provider Family Medicine; PCP Family Medicine; Referring Provider Physical Medicine & Rehabilitation; Visit Provider Physical Medicine & Rehabilitation
DX: M48.061 Spinal stenosis, lumbar region without neurogenic claudication (principal); M47.26 Other spondylosis with radiculopathy, lumbar region; M47.27 Other spondylosis with radiculopathy, lumbosacral region; M51.16 Intervertebral disc disorders with radiculopathy, lumbar region; M51.17 Intervertebral disc disorders with radiculopathy, lumbosacral region; N28.1 Cyst of kidney, acquired
CPT/HCPCS: 72148

== ENCOUNTER → 2023-11-25 14:20 | Outpatient (CLI) | payer OTHER, SELFPAY | PROVIDERS: Family Provider Family Medicine; PCP Family Medicine; Visit Provider Urology | DX: R39.9 Unspecified symptoms and signs involving the genitourinary system (principal) | CPT/HCPCS: 87086 ==

== ENCOUNTER → 2023-12-22 15:22 | Outpatient (CLI) | payer OTHER, SELFPAY ==
[2023-12-22 18:29] LABS: Prostate Specific Antigen 6.03 ng/mL (0.10-4.00)
== END ==
PROVIDERS: Family Provider Family Medicine; PCP Family Medicine; Referring Provider Urology; Visit Provider Urology
DX: R97.20 Elevated prostate specific antigen [PSA] (principal)
CPT/HCPCS: 36415; 84153

== ENCOUNTER → 2023-12-31 08:22 | Outpatient (CLI) | payer OTHER, SELFPAY ==
--- NOTE | 2023-12-31 08:23 | DI.MRI.S_ITS ---
PROCEDURE: MR PELVIC PROSTATE PROTOCOL INDICATIONS: Elevated PSA TECHNIQUE: Coronal HASTE, axial T1 FSE with fat saturation, 3-plane nonbreath-hold T2 FSE. After the administration of contrast, dynamic axial, delayed axial and coronal VIBE or 2-D FLASH with fat saturation through the pelvis. Diffusion weighted imaging and ADC was performed. COMPARISON: None. FINDINGS: Image quality: There is some technical artifact on a few sequences obscuring optimal visualization of the prostate gland in all sequences.. Prostate: Gland size is 5.4 x 4.8 x 5.8 cm; ellipsoid gland volume is 78 mL. Given the PSA of 6.03, PSA density is 0.08. Lesion 1: Location: Right lateral transition zone extending into the peripheral zone at the mid gland level, on axial series four, image 14 and coronal series five, image 15. Size: 1.1 cm. T2W signal: Mild to moderately hypointense, indistinct margin DWI signal: Normal ADC signal: Markedly hypointense Enhancement: Yes Extracapsular extension: No PI-RADS score: Three Lesion 2: Location: Left anterior and lateral transition zone at the mid gland level., on axial series four, image 12 and coronal series five, image 10. Size: Roughly 3.8 cm in maximal oblique AP diameter. T2W signal: Moderately hypointense DWI signal: Normal ADC signal: Moderately hypointense Enhancement: No Extracapsular extension: There is blurring of the pseudo capsule and possible bulging of the capsule posterolaterally, see series 4, image 13. PI-RADS score: Three Genitourinary system: Bladder wall thickness is normal. Narrow necked small left lateral bladder diverticulum. Partially seen left hydrocele. Distal ureters are non distended. Bowel and peritoneum: No pathologic free pelvic fluid. Inferior colon and small bowel loops are normal in caliber. Extensive sigmoid colon diverticulosis. Nodes and vessels: Borderline 0.7 cm right common femoral lymph node., series 4, image 5. 0.8 cm right pelvic sidewall lymph node, series 21, image 72. Soft tissues: Small bilateral fat containing inguinal hernias. Bones: There is abnormal signal along the anterior inferior aspect of both sacroiliac joints, right more prominent than left with mild enhancement seen on both sides of the SI joint. No other suspicious marrow signal. IMPRESSION: There are two equivocal (PI-RADS three) lesions in the prostate gland, one subcentimeter in size and one large plaque-like lesion. Neither demonstrate restricted diffusion, both demonstrate moderate to marked ADC hypointensity. These are more likely due to a benign process, suggesting fibrosis or postinflammatory change, less likely neoplasm given mild degree of PSA elevation and PSA density. Borderline right pelvic adenopathy. Bone changes suggesting sacroiliitis, right greater than left. Correlate clinically. Dictated by: Dimple Gagnon M.D. on 12/31/2023 at 14:25 Approved by: Dimple Gagnon M.D. on 12/31/2023 at 15:02
== END ==
PROVIDERS: Family Provider Family Medicine; PCP Family Medicine; Referring Provider Urology; Visit Provider Urology
DX: N42.9 Disorder of prostate, unspecified (principal); R97.20 Elevated prostate specific antigen [PSA]; N32.3 Diverticulum of bladder; N43.3 Hydrocele, unspecified; K57.30 Diverticulosis of large intestine without perforation or abscess without bleeding; K40.20 Bilateral inguinal hernia, without obstruction or gangrene, not specified as recurrent
CPT/HCPCS: 72197; A9579

== ENCOUNTER → 2024-01-01 13:41 | Outpatient (CLI) | payer OTHER, SELFPAY | PROVIDERS: Family Provider Family Medicine; PCP Family Medicine; Visit Provider Urology | DX: N40.1 Benign prostatic hyperplasia with lower urinary tract symptoms (principal) | CPT/HCPCS: 87086 ==

== ENCOUNTER → 2024-01-13 11:05 | Outpatient (CLI) | payer OTHER, SELFPAY ==
--- NOTE | 2024-01-13 11:07 | DI.RAD.S_ITS ---
PROCEDURE: FL SHOULDER INJECTION MR/CT RT INDICATIONS: Strain of right shoulder COMPARISON: [facility], MR, MR SHOULDER RT W CON, 01/13/2024, 11:52. TECHNIQUE: The indications, alternatives, benefits, risks, and complications of the procedure were explained to the patient. Written informed consent was obtained and placed in the chart. The shoulder was examined fluoroscopically and a site for needle placement chosen for entry into the glenohumeral joint from an anterior approach. The skin was prepped and draped in a sterile fashion, and 1% lidocaine infiltrated from skin down to joint capsule. A spinal needle was inserted into the glenohumeral joint, and a small amount of iodinated contrast media injected to confirm intra-articular placement of the needle tip. This was followed by approximately 12 mL dilute solution of a gadolinium containing MR contrast agent. The needle was removed and a dressing was applied. The patient was given postprocedural instructions and sent to the MR suite for MR imaging. FINDINGS: A single fluoroscopic spot image demonstrates intra-articular location of injected iodinated contrast. IMPRESSION: Successful fluoroscopically guided administration of dilute Gadolinium solution into the shoulder joint for MR arthrogram. Dictated by: Yuliana Faria M.D. on 01/13/2024 at 15:16 Approved by: Yuliana Faria M.D. on 01/13/2024 at 15:16
--- NOTE | 2024-01-13 12:23 | DI.MRI.S_ITS ---
PROCEDURE: MR SHOULDER RT W CON INDICATIONS: Strain of right shoulder TECHNIQUE: After the administration of 12 mL of dilute intra-articular Gadolinium contrast, oblique coronal T1 and T2 spin echo with fat saturation, oblique sagittal T1 spin echo with and without fat saturation, oblique sagittal T2 fast spin echo with fat saturation, axial T1 spin echo with fat saturation through the shoulder. COMPARISON: None. FINDINGS: Image quality: Excellent. Rotator cuff: Full-thickness rupture involving anterior mid fibers of distal supraspinatus at its insertion on the humeral head with up to 3 centimeter medial retraction of torn tendon fibers to the level of acromioclavicular joint. Tendinosis and low-grade articular surface partial-thickness tear involving posterior fibers of distal supraspinatus and distal infraspinatus. The subscapularis tendon is intact. Mild supraspinatus and infraspinatus muscle atrophy is seen on sagittal images. Bones and bursae: Prior rotator cuff tendon repair with postsurgical changes seen in greater tuberosity of humeral head. No marrow edema. No acute fracture or dislocation.. [id number] acromioclavicular joint osteoarthritic changes are seen. Slight superior migration of humeral head in relation to glenoid is noted. Capsule and soft tissues: The labrum and glenohumeral ligaments appear intact. The long head of the biceps tendon appears thickened with intrasubstance T2 hyperintense signal at the level of greater tuberosity. The rotator interval appears normal, without fibrosis. The coracohumeral ligament is of normal thickness. No intra-articular bodies. IMPRESSION: 1. Prior rotator cuff tendon repair with postsurgical changes. No marrow edema. No acute fracture or dislocation. Slight superior migration of humeral head in relation to glenoid. [id number] acromioclavicular joint osteoarthritis. No loose bodies. 2. Full-thickness rupture involving anterior to mid fibers of distal supraspinatus at its insertion on the humeral head with up to 3 centimeter medial retraction of torn tendon fibers to the level of acromioclavicular joint. Low-grade articular surface partial-thickness tear involving posterior fibers of distal supraspinatus and distal infraspinatus. Mild supraspinatus and infraspinatus muscle atrophy. 3. No gross focal labral tear. 4. Proximal long head of biceps tendinosis and low-grade intrasubstance partial-thickness tear. Dictated by: Sarthak Sims M.D. on 01/13/2024 at 17:55 Approved by: Sarthak Sims M.D. on 01/13/2024 at 17:59
[2024-01-13] MEDS: SODIUM CHLORIDE 0.9 % 20 ML VIAL IV (13:51)
[2024-01-13] MEDS: LIDOCAINE 1% 20 ML INJ (13:51)
== END ==
PROVIDERS: Family Provider Family Medicine; PCP Family Medicine; Referring Provider Preventive Medicine Occupational Medicine; Visit Provider Preventive Medicine Occupational Medicine
DX: S46.011A Strain of muscle(s) and tendon(s) of the rotator cuff of right shoulder, initial encounter (principal); S46.111A Strain of muscle, fascia and tendon of long head of biceps, right arm, initial encounter; M19.011 Primary osteoarthritis, right shoulder
CPT/HCPCS: 23350; 73040; 73222; A9579; Q9967

== ENCOUNTER → 2024-02-09 11:39 | Outpatient (CLI) | payer OTHER, SELFPAY | PROVIDERS: Family Provider Family Medicine; PCP Family Medicine; Visit Provider Urology | DX: N40.1 Benign prostatic hyperplasia with lower urinary tract symptoms (principal) | CPT/HCPCS: 87086 ==

== ENCOUNTER → 2024-03-01 11:33 | Outpatient (CLI) | payer OTHER, SELFPAY ==
[2024-03-01 12:23] LABS: COVID-19 CEPHEID 4-PLEX PCR Negative (Negative); Influenza A - CEPHEID Flu A NEGATIVE (NEGATIVE); Influenza B - CEPHEID Flu B NEGATIVE (NEGATIVE); Respiratory Syncytial Virus Negative (Negative)
== END ==
PROVIDERS: Family Provider Family Medicine; PCP Family Medicine; Referring Provider Physician Assistant Surgical; Visit Provider Physician Assistant Surgical
DX: B34.9 Viral infection, unspecified (principal); Z87.440 Personal history of urinary (tract) infections
CPT/HCPCS: 0241U; 87086

== ENCOUNTER → 2024-03-04 11:26 | Outpatient (CLI) | payer OTHER, SELFPAY ==
--- NOTE | 2024-03-04 12:00 | EKG_ITS ---
[facility] [address] [address] [place] [id number] Test Date: 2024-03-04 Pat Name: Héctor Desai Department: [facility] Room: Gender: Male Neurology Epilepsy Physician: VALDEZ : 1950 Requested By: Order Number: [id number] Reading MD: Rob Thomas Measurements Intervals Sarah Ann Rate: 61 P: 65 CA: 172 QRS: -30 QRSD: 110 T: 48 QT: 416 QTc: 418 Interpretive Statements Sinus rhythm with occasional premature ventricular complexes Left axis deviation Electronically Signed On 03-07-2024 15:19:40 PDT by Rob Thomas
[2024-03-04 12:19] LABS: Add Manual Diff / Slide Review NO; Basophils Absolute Auto 100 /uL (0-100); Basophils Percent Auto 0.7 % (0-2); Eosinophils Absolute Auto 100 /uL (0-450); Eosinophils Percent Auto 1.3 % (2-4); Hematocrit 45.4 % (41-53); Hemoglobin 15.6 g/dL (13.5-17.5); Lymphocytes Absolute Auto 1800 /uL (1100-4500); Lymphocytes Percent Auto 23.7 % (25-40); Mean Corpuscular HGB Conc 34.4 % (30-36); Mean Corpuscular Hemoglobin 33.2 PG (26-34); Mean Corpuscular Volume 96.4 fL (80-100); Monocytes Absolute Auto 500 /uL (0-900); Monocytes Percent Auto 7.1 % (3-14); Neutrophils Absolute Auto 5000 /uL (1500-7000); Neutrophils Percent Auto 67.2 % (50-75); Platelet Count 275 X10^3/uL (150-400); Red Blood Cell Count 4.71 X10^6/uL (4.5-5.9); Red Cell Distribution Width 14.4 % (11.6-14.8); White Blood Cell Count 7.4 X10^3/uL (4.5-11.0)
[2024-03-04 12:24] LABS: BUN Creatinine Ratio 14.4 (6-22); Blood Urea Nitrogen 14 mg/dL (9-20); Calcium 8.8 mg/dL (8.4-10.2); Carbon Dioxide 26 mmol/L (22-32); Chloride 107 mmol/L (98-107); Estimated Glomerular Filt Rate > 60 mL/min (>60); Glucose 105 mg/dL (80-110); HEMOLYSIS < 15 (0-50); Potassium 4.7 mmol/L (3.4-5.1); Sodium 140 mmol/L (137-145)
== END ==
LOC: RESP 11:27
PROVIDERS: Family Provider Family Medicine; PCP Family Medicine; Referring Provider Orthopaedic Surgery; Visit Provider Orthopaedic Surgery
DX: Z01.812 Encounter for preprocedural laboratory examination (principal); Z01.818 Encounter for other preprocedural examination
CPT/HCPCS: 36415; 80048; 85025; 93005

== ENCOUNTER 2024-03-08 07:40 | Day surgery (SDC) | payer OTHER, SELFPAY ==
[2024-02-10 07:36] VITALS: BMI 28.3
[2024-03-08] VITALS (10 sets, daily range): BP systolic 98–143; BP diastolic 60–78; PULSE 71–97; RESP 12–17; TEMP 36.1–36.5; O2SAT 90–98; BMI 28.3
--- NOTE | 2024-03-08 | PATH_ITS ---
[facility] Accession Number: [id number] No. of containers..01 Tissue . 01 Material submitted: . prostate - PROSTATE CHIPS . 01 Diagnosis: PROSTATE CHIPS (WEIGHT 4 GRAMS): Benign prostatic tissue with stromal and glandular hyperplasia and patchy chronic prostatitis. MRV 03/10/2024 1226 Local . 01 Electronically signed: . Lillian Mcnally MD, Pathologist NPI- [id number] . 01 Gross description: . Received in formalin with two identifiers and prostate chips, are multiple mata soft tissue fragments admixed with hemorrhagic material weighing 4 grams and aggregating to 5.4 x 4.6 x 0.8 cm. Submitted entirely in cassettes A1-A3. ([id number]) /YOEL 03/09/2024 1046 Local . 01 Pathologist provided ICD-10: N40.1 . 01 CPT . 073657 Specimen Comment: A courtesy copy of this report has been sent to [phone] Performed at: [address] [facility] [address], [place], [place] [id number] MD Carl Crabtree MD Phone: [phone]
[2024-03-08] MEDS: LACTATED RINGERS 1,000 ML 42 ML IV ×2 (08:14→10:37)
--- NOTE | 2024-03-08 09:11 | PM.PREOP ---
Pre-operative Note COVID-19 COVID-19 status: Not tested Interval Note History & Physical reviewed/Exam performed by Physician: Yes Changes to H&P: No
[2024-03-08] MEDS: CEFAZOLIN 2 GM/100 ML PREMIX 100 ML IV (09:49)
--- NOTE | 2024-03-08 10:06 | SUR.OPER ---
Lithotomy on padded OR bed, head on pillow, arms secured on padded arm boards at <90 degrees abduction. Legs secured in padded yellow fins stirrups.
--- NOTE | 2024-03-08 11:34 | P.OP_ITS ---
Procedure & Clinicians Procedure: 1. Aquablation 2. Transrectal ultrasound prostate 3. Transurethral resection of bladder neck with fulguration 4. Placement of Price catheter Same procedure as scheduled: Yes Indications: This 73-year-old male presented with profound benign prostatic hyperplasia with lower urinary tract symptoms. Workup revealed him to have an approximately 97 g prostate with a obstructive character and decreased Q max on uroflow. He presents at this time for Aquablation to eliminate his urinary symptoms. Surgeon: Gilbert Kowalski Click Yes if Unassisted: Yes Anesthesia Type: General Operative Notes Findings: Urethral meatus is normal urethra is normal along its length with normal mucosa sphincter as well coapted. The verumontanum is in expected position the prostatic fossa is elongated with minimal bulging into the bladder and perhaps a very small median lobe. Ureteral orifices in normal position with clear efflux in at the end of the procedure they were unaffected. The bladder exhibits a left lateral wall broad-based small diverticulum. There were no other abnormalities in the bladder except severe trabeculation and diffuse cellules. A 24 Montserratian three-way 30 cc hematuria catheter is left in place with 45 cc in the balloon. Prostate chips were forwarded for pathologic examination. Closure Type: not applicable Specimen(s): other (Prostate chips) Prosthetic devices, grafts, tissues, transplants, or devices: 24 [place]ian 30 cc three-way hematuria catheter with 45 cc in the balloon Estimated Blood Loss (mL): 25 Blood products transfused: none Procedure in detail: Procedure in detail: After informed consent was obtained, the patient was identified and brought to the operating room where he is placed in a supine position on the operative table. Once there anesthesia was induced and maintained. Ensuring an adequate level of anesthesia the patient was transitioned to the lithotomy position where after time-out, administration antibiotics the patient was sterilely prepped. At this point 60 cc of ultrasound gel was instilled in the patient's rectum followed by the ultrasound probe. This was on the transrectal ultrasound stepper which was mounted to the articulating arm and this was secured to the bed. Again the ultrasound probe having been attached to the stepper. With the ultrasound probe in place it was aligned and confirmed to be that it was centered in the prostate and this alignment was checked in both the transverse and longitudinal planes. The bladder neck verumontanum and central and transition to nodes were noted. With the ultrasound probe in place the 24 [place]ian aqua beam handpiece was then inserted through the urethra prostate and into the bladder where cystoscopy was performed. Position of the ureteral orifices was noted. The Aquablation handpiece at this point was secured to the handpiece articulating arm which was secured to the bed. The Aquablation handpiece and ultrasound probe were noted to be parallel and colinear. As the hand piece was inserted the level of the external sphincter verumontanum and bladder neck were noted both visually and on the ultrasound. At this point the Aquablation him nozzle was centered and anterior to the bladder neck. With this in place the cystoscope was then retracted in the verumontanum visualized external sphincter and the cystoscope was position just proximal to the external sphincter. Again it was reconfirmed the alignment of the ultrasound probe in the aqua beam handpiece again were col inear and centered. Compression was then applied with the Transurethral ultrasound probe. The horizontal alignment of the water checked was checked and confirmed and adjustments made to make sure that they exited at the 3 and 9 o'clock position. The treatment zones were then planned in the following fashion at the largest transverse versus view in real-time ultrasound the contour of the prostate was visualized the depth and radial angles of resection were defined. With this done in the sagittal view the aqua beam nozzle was identified and its position registered with the software. The tip of the scope was identified and the length of resection of determined. At this point the treatment contours defined from the bladder neck to the tip of the scope. These were adjusted to conform to the intended resection margins. With this program in and confirmed the Aquablation treatment was started and with real-time ultrasound the treatment plan was followed. A 2nd pass was made after adjusting the treatment contours and moving the bladder neck in ever so slightly and a 2nd pass performed. Total time was 9 minutes for the 2 passes. With the passes completed the cystoscope was advanced to the tip of the hand piece and with the water flowing the unit was looked out under direct vision. A continuous-flow resectoscope was then inserted Ellik evacuator was used to evacuate the small amount of clot that was present. The resectoscope was inserted the ureteral orifices were noted and were unaffected. And then the bladder neck was resected from the 1:00 a.m. to the 11 o'clock position points of bleeding controlled with the electrocautery. Anteriorly there was some bleeding which was controlled with the electrocautery. At the level of the verumontanum there was an arterial bleeder which was controlled with the electrocautery. The [facility] evacuator was then employed and the prostate chips washed out the bladder was drained filled and any points of bleeding were controlled with the electrocautery. At this point the effluent was clear to light pink. Total time from ultrasound in 2 catheter in was 69 minutes. And again with the chips evacuated confirming again that the ureteral orifices were unaffected the bladder was left full the scope was removed and the patient had a vigorous stream. With the aid of a cath guide the 24 [place]ian catheter was passed into the bladder also this was visualized on the ultrasound. The balloon was filled with 45 cc of sterile water in place to gravity drainage. This was connected to continuous bladder irrigation and irrigated in the effluent remained light pink to clear. At this point the patient was awakened taken to the postanesthesia care unit having tolerated the procedure well. There were no complications patient will be observed in the postanesthesia care unit and will be determined whether he is discharged directly from there or up to the acute care floor for observation overnight with continuous bladder irrigation. Complications: none Post-operative Condition: stable Disposition: PACU Plan for aftercare: Patient to be observed in the postanesthesia care unit we will determine whether the patient is to be immediately discharged or held overnight and discharged wi thin a 23 hour. At a minimum the patient will receive a phone call in the morning and then follow-up my office in 48 hours her on for likely catheter removal.
[2024-03-08] MEDS: PHENAZOPYRIDINE 100 MG TABLET 200 MG PO (12:52)
[2024-03-08] MEDS: ACETAMINOPHEN 325 MG TABLET 650 MG PO (12:56)
== END 2024-03-08 15:12 | disposition home or self-care (01) ==
PROVIDERS: Family Provider Family Medicine; PCP Family Medicine; Referring Provider Urology; Visit Provider Urology
PROC: 0VT08ZZ Resection of Prostate, Via Natural or Artificial Opening Endoscopic (ICD-10-PCS; CPT 0421T; principal; 2024-03-08 09:45)
DX: N40.1 Benign prostatic hyperplasia with lower urinary tract symptoms (principal); R39.12 Poor urinary stream; N32.3 Diverticulum of bladder; Z72.0 Tobacco use
CPT/HCPCS: 0421T; 82962; C2596; J0690; J1170; J2405; J2704; J3010; J3490

== ENCOUNTER → 2024-03-10 15:33 | Outpatient (CLI) | payer OTHER, SELFPAY | PROVIDERS: Family Provider Family Medicine; PCP Family Medicine; Visit Provider Urology | DX: N40.1 Benign prostatic hyperplasia with lower urinary tract symptoms (principal); R39.9 Unspecified symptoms and signs involving the genitourinary system; Z68.27 Body mass index [BMI] 27.0-27.9, adult | CPT/HCPCS: 51798; 81002; 87086 ==

== ENCOUNTER → 2024-03-11 10:08 | Outpatient (CLI) | payer OTHER, SELFPAY | PROVIDERS: Family Provider Family Medicine; PCP Family Medicine; Visit Provider Urology | DX: R39.9 Unspecified symptoms and signs involving the genitourinary system (principal) | CPT/HCPCS: 87086 ==

== ENCOUNTER → 2024-03-21 15:08 | Outpatient (CLI) | payer OTHER, SELFPAY | PROVIDERS: Family Provider Family Medicine; PCP Family Medicine; Visit Provider Urology | DX: R39.9 Unspecified symptoms and signs involving the genitourinary system (principal) | CPT/HCPCS: 87086 ==

== ENCOUNTER → 2024-03-30 11:37 | Outpatient (CLI) | payer OTHER, SELFPAY ==
--- NOTE | 2024-03-30 11:38 | DI.CT.S_ITS ---
PROCEDURE: CT UE RT WO CON INDICATIONS: ROTATOR CUFF ARTHROPATHY RT TECHNIQUE: Noncontrast 0.75 mm thick sections acquired from the acromioclavicular joint to the inferior scapula, with coronal and sagittal reformatting. COMPARISON: [facility], MR, MR SHOULDER RT W CON, 01/13/2024, 11:52. FINDINGS: Image quality: Excellent. Bones: There is moderate acromioclavicular joint osteoarthritis and moderate glenohumeral joint osteoarthritis with joint space narrowing, subchondral sclerosis and marginal osteophyte formation. No acute fracture or dislocation. No suspicious intraosseous lesions. The visualized right upper to mid ribs are grossly intact. Superior migration of humeral head in relation to glenoid is seen. Soft tissues: Patient's known full-thickness rupture of distal supraspinatus is better evaluated on previous MR study. Sagittal images shows mild to moderate supraspinatus muscle atrophy. No soft tissue mass or drainable fluid collection. Small to moderate joint effusion and subacromial subdeltoid bursal fluid is seen, no calcified intra-articular loose bodies. The visualized right lung field is clear. No axillary lymphadenopathy. IMPRESSION: 1. Study is for surgical planning. 2. Moderate acromioclavicular joint osteoarthritis and glenohumeral joint osteoarthritis. No shoulder fracture or dislocation. No suspicious bony lesions. 3. Superior migration of humeral head consistent with patient's known supraspinatus muscle rupture. Mild to moderate supraspinatus muscle atrophy. 4. Moderate joint will subdeltoid bursal fluid. No calcified intra-articular loose bodies. Dictated by: Sarthak Sims M.D. on 03/30/2024 at 14:21 Approved by: Sarthak Sims M.D. on 03/30/2024 at 14:25
== END ==
LOC: CT 11:38
PROVIDERS: Family Provider Family Medicine; PCP Family Medicine; Referring Provider Orthopaedic Surgery; Visit Provider Orthopaedic Surgery
DX: S46.011A Strain of muscle(s) and tendon(s) of the rotator cuff of right shoulder, initial encounter (principal); M12.811 Other specific arthropathies, not elsewhere classified, right shoulder
CPT/HCPCS: 73200

== ENCOUNTER → 2024-04-05 09:37 | Outpatient (CLI) | payer OTHER, SELFPAY | PROVIDERS: Family Provider Family Medicine; PCP Family Medicine; Visit Provider Urology | DX: R39.9 Unspecified symptoms and signs involving the genitourinary system (principal) | CPT/HCPCS: 87086 ==

== ENCOUNTER → 2024-06-14 16:22 | Outpatient (CLI) | payer OTHER, SELFPAY | PROVIDERS: PCP Family Medicine; Visit Provider Urology | DX: N40.1 Benign prostatic hyperplasia with lower urinary tract symptoms (principal); R39.12 Poor urinary stream; N32.3 Diverticulum of bladder; R97.20 Elevated prostate specific antigen [PSA]; R39.9 Unspecified symptoms and signs involving the genitourinary system; Z72.0 Tobacco use | CPT/HCPCS: 51798; 81002; 87086; 99213 ==

== ENCOUNTER → 2024-08-05 15:06 | Outpatient (CLI) | payer OTHER, SELFPAY | PROVIDERS: PCP Family Medicine; Visit Provider Urology | DX: N40.1 Benign prostatic hyperplasia with lower urinary tract symptoms (principal); R39.12 Poor urinary stream; N32.3 Diverticulum of bladder; R39.9 Unspecified symptoms and signs involving the genitourinary system; R97.20 Elevated prostate specific antigen [PSA]; L30.9 Dermatitis, unspecified | CPT/HCPCS: 51798; 81002; 87086; 99213 ==

== ENCOUNTER → 2024-09-14 16:00 | Outpatient (CLI) | payer OTHER, SELFPAY ==
--- NOTE | 2024-09-14 16:01 | DI.MRI.S_ITS ---
PROCEDURE: MR SHOULDER RT WO CON INDICATIONS: BICIPITAL TENDINITIS/RULE OUT RCT TECHNIQUE: Noncontrast oblique coronal T2 fast spin echo with fat saturation, oblique sagittal T1 spin echo and T2 fast spin echo with fat saturation, axial T1 spin echo and T2 fast spin echo with fat saturation through the shoulder. COMPARISON: [facility], MR, MR SHOULDER RT W CON, 01/13/2024, 11:52. [facility], MR, MR SHOULDER LT WO CON, 08/25/2020, 15:03. FINDINGS: Image quality: Excellent. Bones: Insertional cyst formation is present subjacent to the supraspinatus footprint (9/9). The bone marrow signal is otherwise normal. There is no acute fracture or dislocation. Acromioclavicular joint: Mild-moderate osteoarthritis. There is a type 1 acromion. Glenohumeral joint: Mild osteoarthritis. There is no significant joint effusion. There is mild superior subluxation of the humeral head relative to the glenoid. Labrum: Circumferential blunting and fraying of the labrum. Cartilage: Partial thickness chondral loss at the superior glenohumeral articular cartilage (7/10). Subacromial-subdeltoid bursa: There is a small amount of fluid in the subacromial-subdeltoid bursa, decompressing from the glenohumeral joint via the rotator cuff pathology noted below. Rotator cuff: Status post prior rotator cuff repair of the supraspinatus and subscapularis, there is a partial width, full-thickness 0.6 x 1.0 cm tear of the anterior bundle of the supraspinatus tendon at the critical zone-myotendinous junction (7/8; 9/14). Superimposed on mild tendinosis, there is a partial width, partial-thickness, articular sided tear of the infraspinatus at the footprint (9/11; 5/12). There is mild subscapularis tendinosis. The teres minor tendon is intact. Long head of biceps tendon: Status post possible prior biceps tenodesis. The long head of the biceps tendon is present within the bicipital groove and intact. The intra-articular portion is not well identified. Musculature: There is mild atrophy of the supraspinatus, cranial infraspinatus, and cranial subscapularis muscle fibers. The teres minor muscle bulk is intact. Inferior glenohumeral ligaments/Axillary pouch: The axillary pouch is mildly thickened with low signal. Coracoclavicular and coracoacromial ligaments: The coracoclavicular and coracoacromial ligaments are normal. Other: Partial loss of the fat signal at the rotator interval. IMPRESSION: 1. Nonvisualization of the intra-articular portion of the long head of the biceps tendon, which may represent tendinosis or split tearing. 2. Status post rotator cuff tear with re-identified full-thickness 1 cm tear at the supraspinatus critical zone-myotendinous junction. 3. Partial width, partial-thickness, articular sided infraspinatus tear at the footprint, superimposed on mild tendinosis, and mild muscle atrophy. Mild subscapularis tendinosis with mild muscle atrophy. 4. Mild glenohumeral osteoarthritis. 5. Mild-moderate acromioclavicular osteoarthritis. 6. Findings suggestive of adhesive capsulitis. Dictated by: Jose Ramon Mata M.D. on 09/15/2024 at 18:44 Approved by: Jose Ramon Mata M.D. on 09/15/2024 at 18:53
== END ==
LOC: MRI 16:00
PROVIDERS: PCP Family Medicine; Referring Provider Orthopaedic Surgery; Visit Provider Orthopaedic Surgery
DX: M75.111 Incomplete rotator cuff tear or rupture of right shoulder, not specified as traumatic (principal); M75.21 Bicipital tendinitis, right shoulder; M19.011 Primary osteoarthritis, right shoulder
CPT/HCPCS: 73221

== ENCOUNTER → 2024-11-14 11:47 | Outpatient (CLI) | payer OTHER, SELFPAY ==
--- NOTE | 2024-11-14 11:49 | DI.CT.S_ITS ---
PROCEDURE: CT UE RT WO CON INDICATIONS: Arthrex templating for surgery TECHNIQUE: Noncontrast 0.75 mm thick sections acquired from the acromioclavicular joint to the inferior scapula, with oblique coronal and oblique sagittal reformatting. For radiation dose reduction, the following was used: automated exposure control, adjustment of mA and/or kV according to patient size. COMPARISON: [facility], MR, MR SHOULDER RT WO CON, 09/14/2024, 16:19. [facility], CT, CT UE RT WO CON, 03/30/2024, 11:45. FINDINGS: Image quality: Excellent. Bones: No acute osseous fracture or dislocation. Surgical anchors are seen in the superolateral humeral head. Moderate degenerative changes are seen at the glenohumeral joint with joint space narrowing and small marginal osteophytes. Postsurgical changes at the acromioclavicular joint. Humeral head is mildly high riding. No suspicious osseous lesion. Mild degenerative changes in the included spine. Visualized ribs are intact. Soft tissues: Small glenohumeral effusion. The rotator cuff musculature is normal in bulk. Therefore, the tendons, ligaments, articular cartilages, and labrum are not well evaluated with CT. Mild chondrocalcinosis. No right axillary lymphadenopathy. Mild right apical subpleural emphysema. A few small subcutaneous lesions at the right upper back and lower neck likely representing sebaceous cysts. IMPRESSION: 1. Exam performed for pre-surgical planning. 2. Postsurgical changes from prior rotator cuff tendon repair. 3. Moderate glenohumeral osteoarthrosis. 4. Postsurgical changes at the acromioclavicular joint. Approved by: Renzo Ventura M.D. on 11/14/2024 at 16:34
== END ==
LOC: CT 11:48
PROVIDERS: PCP Family Medicine; Referring Provider Orthopaedic Surgery; Visit Provider Orthopaedic Surgery
DX: M12.811 Other specific arthropathies, not elsewhere classified, right shoulder (principal)
CPT/HCPCS: 73200

== ENCOUNTER → 2025-01-24 10:26 | Outpatient (CLI) | payer OTHER, SELFPAY ==
--- NOTE | 2025-01-24 10:33 | EKG_ITS ---
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
[2025-01-24 11:23] LABS: Add Manual Diff / Slide Review NO; Hematocrit 44.9 % (41-53); Hemoglobin 15.0 g/dL (13.5-17.5); Lymphocytes Absolute Auto 1700 /uL (1100-4500); Mean Corpuscular HGB Conc 33.4 % (30-36); Mean Corpuscular Hemoglobin 32.1 PG (26-34); Mean Corpuscular Volume 96.0 fL (80-100); Platelet Count 295 X10^3/uL (150-400)
[2025-01-24 11:44] LABS: INR 0.9 (0.9-1.3); Prothrombin Time 10.2 SECONDS (9.4-12.5)
[2025-01-24 11:47] LABS: PTT Partial Thromboplastin Tim 26 SECONDS (25.1-36.5)
[2025-01-24 11:53] LABS: Blood Urea Nitrogen 20 mg/dL (9-20); Calcium 9.4 mg/dL (8.4-10.2); Carbon Dioxide 27 mmol/L (22-32); Chloride 106 mmol/L (98-107); Estimated Glomerular Filt Rate > 60 mL/min (>60); Glucose 103 mg/dL (70-99); HEMOLYSIS < 15 (0-50); Potassium 5.2 mmol/L (3.4-5.1); Sodium 139 mmol/L (137-145)
== END ==
PROVIDERS: PCP Family Medicine; Referring Provider Orthopaedic Surgery; Visit Provider Orthopaedic Surgery
DX: Z01.812 Encounter for preprocedural laboratory examination (principal); Z01.818 Encounter for other preprocedural examination; Z51.81 Encounter for therapeutic drug level monitoring
CPT/HCPCS: 36415; 80048; 85025; 85610; 85730; 93005

== ENCOUNTER 2025-02-02 12:18 | Emergency (ER) | payer OTHER, SELFPAY ==
[2025-02-02 12:27] VITALS: BP 171/75; PULSE 62; RESP 18; TEMP 36.6; O2SAT 97; BMI 29.1
--- NOTE | 2025-02-02 12:53 | DI.RAD.S_ITS ---
PROCEDURE: XR PELVIS 1-2V INDICATIONS: BL hip pain; lumbar pain TECHNIQUE: 1 view(s) of the pelvis acquired. COMPARISON: [facility], CT, CT ABDOMEN PELVIS WO/W CON, 05/22/2023, 13:10. [facility], CR, XR LUMBAR SPINE 2-3V, 02/02/2025, 12:03. FINDINGS: Bones: No fractures or dislocations. No suspicious bony lesions. Generalized degenerative changes are seen, with mwrt-vs-xakalmnr degenerative change of both hips. Age-appropriate lower lumbar spine degenerative changes are noted. Soft tissues: Visualized bowel gas pattern is normal. No suspicious soft tissue calcifications. IMPRESSION: Generalized degenerative changes are seen, without a focal acute abnormality. If it would be helpful for clinical management decision making, please consider a dedicated hip MRI for further evaluation (assuming that there is no contraindication). If there is strong clinical concern for a labral abnormality, this should be performed according to the arthrogram protocol. Dictated by: Ethan Alvarez M.D. on 02/02/2025 at 12:28 Approved by: Ethan Alvarez M.D. on 02/02/2025 at 12:29
--- NOTE | 2025-02-02 12:53 | DI.RAD.S_ITS ---
PROCEDURE: XR LUMBAR SPINE 2-3V INDICATIONS: BL hip pain; lumbar pain TECHNIQUE: 3 views of the lumbar spine were acquired. COMPARISON: , CT, CT ABDOMEN PELVIS WO/W CON, 05/22/2023, 13:10. , CR, XR PELVIS 1-2V, 02/02/2025, 12:02. FINDINGS: Bones: 5 mxn-yqc-zalmvyp vertebrae are present. No vertebral body compression fractures. No suspicious bony lesions. There is minimal retrolisthesis at L1-L2, L2-L3, and L3-L4. Ybbi-cz-tfigwyei disc space narrowing can be seen at L1-L2 and L2-L3, with mild disc space narrowing at L3-L4 and L4-L5. Several levels of bridging anterior osteophytes can be seen. Lower lumbar spine facet arthropathy is seen. Soft tissues: Overlying bowel gas pattern is normal. No suspicious soft tissue calcifications. IMPRESSION: Multiple levels of lumbar spine degenerative change can be seen, without an acute focal abnormality. If it would be helpful for clinical management decision making, please consider a dedicated, scheduled lumbar spine MRI for further evaluation (assuming that there is no contraindication). Dictated by: Ethan Alvarez M.D. on 02/02/2025 at 12:29 Approved by: Ethan Alvarez M.D. on 02/02/2025 at 12:30
--- NOTE | 2025-02-02 13:14 | ED.BACK ---
HPI - Back Pain/Injury <Fanny Alvarado PA-C - Last Filed: 02/02/25 14:47> General Chief Complaint: Back Pain/Injury Stated Complaint: back pain hip pain Time Seen by Provider: 02/02/25 12:50 Source: patient History of Present Illness HPI Narrative: Mr. Hayden is a pleasant 74-year-old male with a past medical history of hypertension, COPD who presents to the emergency department with his for low back pain bilateral hip pain x 20 days. Patient struggles with chronic low back pain and is scheduled to see a spine surgeon for surgery planning on March 08. He typically manages his pain with Tylenol and meloxicam. However on January 13 he twisted his low back and has had worsening pain since then. Describes his pain as in the bilateral lumbar region, the bilateral hips and buttocks region with tingling and pain occasionally radiating down both legs. His pain has not been controlled with Tylenol and meloxicam and today he took his 's Vicodin which did improve the pain. He has right shoulder surgery scheduled on February 16 for another injury, and will have to stop taking meloxicam at least 1 week before the surgery and concerned that his pain is getting out of control. He denies bowel or bladder incontinence, hematuria, dysuria, saddle anesthesia, fevers. He is ambulatory without assistance. Related Data Previous Rx's ?Medication ?Instructions ?Recorded losartan 50 mg tablet 50 mg PO DAILY #90 tabs 10/14/23 meloxicam 15 mg tablet 7.5 - 15 mg (0.5 - 1 x 15 mg) PO 10/19/24 DAILY #90 tabs pantoprazole 40 mg tablet,delayed 40 mg PO BEDTIME #90 tabs 10/19/24 release tiotropium bromide 1.25 2 puff PO DAILY #4 grams 11/30/24 mcg/actuation mist for inhalation (Spiriva Respimat) cyclobenzaprine 10 mg tablet 10 mg PO HS PRN muscle spasm #90 12/09/24 tabs triamcinolone acetonide 0.1 % 1 applic topical HS PRN dry skin 12/09/24 topical cream #80 grams albuterol sulfate 90 mcg/actuation 2 puff PO Q6H PRN for wheezing 01/31/25 aerosol inhaler #8.5 grams methocarbamol 500 mg tablet 500 mg PO TID PRN Muscle Spasm #20 02/02/25 tabs oxycodone-acetaminophen 5 mg-325 1 tab PO Q4-6H PRN pain #12 tabs 02/02/25 mg tablet prednisone 20 mg tablet 40 mg (2 x 20 mg) PO DAILY 5 days 02/02/25 #10 tabs Allergies Allergy/AdvReac Type Severity Reaction Status Date / Time lactose (LACTOSE) AdvReac Intermediate BLOATED Verified 12/09/24 11:25 Review of Systems <Fanny Alvarado PA-C - Last Filed: 02/02/25 14:47> Review of Systems ROS Unobtainable: All systems reviewed & are unremarkable except as noted in HPI and below Patient History <Fanny Alvarado PA-C - Last Filed: 02/02/25 14:47> Medical History Facial dermatitis Lumbar disc disease with radiculopathy Chronic low back pain with bilateral sciatica Cranial somatic dysfunction Tension headache Squamous cell metaplasia of urinary bladder Bladder diverticulum Benign prostatic hyperplasia with lower urinary tract symptoms Elevated PSA Lower urinary tract symptoms Lesion of bladder Tobacco abuse Gross hematuria Arthritis Rib pain COPD (chronic obstructive pulmonary disease) Shortness of breath at rest Hand pain, left Tobacco abuse counseling Wheezing Chronic cough Sebaceous cyst Actinic keratoses Plantar fasciitis of left foot Constipation due to opioid therapy Rupture of left rotator cuff Trigger finger of both hands Benign prostatic hyperplasia Hyperlipidemia, mixed Joint pain in both hands Dermatochalasis of both eyelids Segmental and somatic dysfunction of upper extremity Cervical somatic dysfunction Left arm pain Cervicothoracic somatic dysfunction Segmental and somatic dysfunction of thoracic region Chronic neck pain Acute upper back pain Undescended right testicle Umbilical hernia (~04/2012) BPH (benign prostatic hyperplasia) Hypertension Actinic keratosis Anxiety GERD (gastroesophageal reflux disease) Fracture of left tibia and fibula Surgical History History of urologic surgery (07/21/23) History of orchiectomy H/O circumcision History of esophagogastroduodenoscopy (EGD) (05/2009) Hx of hernia repair (04/2012) History of open reduction and internal fixation (ORIF) procedure Family History Father Prostate cancer Colon cancer Hearing impairment Hypertension UTI (urinary tract infection) Brother Cancer Mother Stroke Cancer Diabetes mellitus Hyperlipidemia Hypertension UTI (urinary tract infection) History of kidney stones Social History marital status: number of children: 4 household members: spouse occupational status: previously employed and other Smoking Status: Current every day smoker Tobacco: How many years used: 54 Smokeless tobacco user: other alcohol intake: current substance use type: does not use caffeine: Yes Type(s) of exercise: other frequency: 1-2 times per week duration: > 90 minutes/day Smoking Status: Current every day smoker tobacco type: cigarettes alcohol intake frequency: 0-2 drinks per day Exam <Fanny Alvarado PA-C - Last Filed: 02/02/25 14:47> Narrative Exam Narrative: GENERAL: 74 year old patient appears stated age. Well-developed patient, in no acute distress. HEAD: Atraumatic. Normocephalic. EYES: No scleral icterus. No injection or drainage. NECK: Trachea midline. Cervical ROM intact. CARDIOVASCULAR: Regular rate RESPIRATORY: ?Nonlabored respirations. ?Speaking in clear, full sentences. ? EXTREMITIES: Surgical absence of right 5th toe. Patient has strong DP and PT pulses bilaterally, brisk capillary refill in the toes, 5/5 bilateral plantar and dorsiflexion strength, knee flexion-extension strength. BACK: Patient is able to stand and ambulate independently without assistance. He has no midline lumbar tenderness however he does have tenderness to the bilateral paralumbar spinal muscle region in the bilateral SI joint region. NEURO: AOx3. ?Clear speech. ?Moves all 4 extremities appropriately. SKIN: No rash or erythema of visible areas. Initial Vital Signs Initial Vital Signs: Vital Signs Temperature 97.9 F 02/02/25 12:27 Pulse Rate 62 02/02/25 12:27 Respiratory Rate 18 02/02/25 12:27 Blood Pressure 171/75 H 02/02/25 12:27 Pulse Oximetry 97 02/02/25 12:27 Oxygen Delivery Method Room Air 02/02/25 12:27 <Kary Tavarez MD - Last Filed: 02/04/25 19:12> Initial Vital Signs Initial Vital Signs: Vital Signs Temperature 97.9 F 02/02/25 12:27 Pulse Rate 62 02/02/25 12:27 Respiratory Rate 18 02/02/25 12:27 Blood Pressure 171/75 H 02/02/25 12:27 Pulse Oximetry 97 02/02/25 12:27 Oxygen Delivery Method Room Air 02/02/25 12:27 Course <Fanny Alvarado PA-C - Last Filed: 02/02/25 14:47> Orders Ordered: Discontinued Medications Ketorolac Tromethamine (Ketorolac 30 Mg/Ml Vial) 30 mg IM NOW ONE Stop: 02/02/25 13:30 Last Admin: 02/02/25 13:37 Dose: 30 mg Documented By: RB Methocarbamol (Methocarbamol 500 Mg Tablet) 1,000 mg PO NOW ONE Stop: 02/02/25 13:30 Last Admin: 02/02/25 13:40 Dose: 1,000 mg Documented By: RB Oxycodone HCl (Oxycodone Ir 5 Mg Tablet) 5 mg PO NOW ONE Stop: 02/02/25 13:30 Last Admin: 02/02/25 13:37 Dose: 5 mg Documented By: RB Prednisone (Prednisone 20 Mg Tablet) 40 mg PO NOW ONE Stop: 02/02/25 13:30 Last Admin: 02/02/25 13:37 Dose: 40 mg Documented By: RB Vital Signs Vital signs: Vital Signs - 8 hr 02/02/25 12:27 02/02/25 14:30 Temperature 97.9 F Pulse Rate 62 68 Respiratory Rate 18 16 Blood Pressure 171/75 H 168/70 H Pulse Oximetry 97 97 Oxygen Delivery Method Room Air Room Air <Kary Tavarez MD - Last Filed: 02/04/25 19:12> Orders Ordered: Discontinued Medications Ketorolac Tromethamine (Ketorolac 30 Mg/Ml Vial) 30 mg IM NOW ONE Stop: 02/02/25 13:30 Last Admin: 02/02/25 13:37 Dose: 30 mg Documented By: RB Methocarbamol (Methocarbamol 500 Mg Tablet) 1,000 mg PO NOW ONE Stop: 02/02/25 13:30 Last Admin: 02/02/25 13:40 Dose: 1,000 mg Documented By: RB Oxycodone HCl (Oxycodone Ir 5 Mg Tablet) 5 mg PO NOW ONE Stop: 02/02/25 13:30 Last Admin: 02/02/25 13:37 Dose: 5 mg Documented By: RB Prednisone (Prednisone 20 Mg Tablet) 40 mg PO NOW ONE Stop: 02/02/25 13:30 Last Admin: 02/02/25 13:37 Dose: 40 mg Documented By: RB Vital Signs Vital signs: Vital Signs - 8 hr 02/02/25 12:27 02/02/25 14:30 Temperature 97.9 F Pulse Rate 62 68 Respiratory Rate 18 16 Blood Pressure 171/75 H 168/70 H Pulse Oximetry 97 97 Oxygen Delivery Method Room Air Room Air MDM - Back Pain/Injury <Fanny Alvarado PA-C - Last Filed: 02/02/25 14:47> Medical Records Attestation: I reviewed the patient's medical records. Imaging Data XR Pelvis: Radiologist's Impression: PROCEDURE: XR PELVIS 1-2V INDICATIONS: BL hip pain; lumbar pain TECHNIQUE: 1 view(s) of the pelvis acquired. COMPARISON: [facility], CT, CT ABDOMEN PELVIS WO/W CON, 05/22/2023, 13:10. [facility], , XR LUMBAR SPINE 2-3V, 02/02/2025, 12:03. FINDINGS: Bones: No fractures or dislocations. No suspicious bony lesions. Generalized degenerative changes are seen, with ajil-uy-vwhvkvkj degenerative change of both hips. Age-appropriate lower lumbar spine degenerative changes are noted. Soft tissues: Visualized bowel gas pattern is normal. No suspicious soft tissue calcifications. IMPRESSION: Generalized degenerative changes are seen, without a focal acute abnormality. If it would be helpful for clinical management decision making, please consider a dedicated hip MRI for further evaluation (assuming that there is no contraindication). If there is strong clinical concern for a labral abnormality, this should be performed according to the arthrogram protocol. Dictated by: Ethan Alvarez M.D. on 02/02/2025 at 12:28 Approved by: Ethan Alvarez M.D. on 02/02/2025 at 12:29 X-Ray Lumbar: Radiologist's Impression: PROCEDURE: XR LUMBAR SPINE 2-3V INDICATIONS: BL hip pain; lumbar pain TECHNIQUE: 3 views of the lumbar spine were acquired. COMPARISON: [facility], CT, CT ABDOMEN PELVIS WO/W CON, 05/22/2023, 13:10. [facility], CR, XR PELVIS 1-2V, 02/02/2025, 12:02. FINDINGS: Bones: 5 ybc-eqy-sitmccy vertebrae are present. No vertebral body compression fractures. No suspicious bony lesions. There is minimal retrolisthesis at L1-L2, L2-L3, and L3-L4. Ohjh-su-xiegbnms disc space narrowing can be seen at L1-L2 and L2-L3, with mild disc space narrowing at L3-L4 and L4-L5. Several levels of bridging anterior osteophytes can be seen. Lower lumbar spine facet arthropathy is seen. Soft tissues: Overlying bowel gas pattern is normal. No suspicious soft tissue calcifications. IMPRESSION: Multiple levels of lumbar spine degenerative change can be seen, without an acute focal abnormality. If it would be helpful for clinical management decision making, please consider a dedicated, scheduled lumbar spine MRI for further evaluation (assuming that there is no contraindication). Dictated by: Ethan Alvarez M.D. on 02/02/2025 at 12:29 Approved by: Ethan Alvarez M.D. on 02/02/2025 at 12:30 MDM Narrative Medical decision making narrative: 74-year-old male with a past medical history of hypertension, COPD who presents to the emergency department with his for low back pain bilateral hip pain x 20 days. Differential diagnosis includes but is not limited to lumbar radiculopathy, sacroiliitis, spinal stenosis, degenerative disc disease, osteoarthritis, etc. On exam patient is in no acute distress, nontoxic appearing, vital signs appropriate except for mildly elevated blood pressure. He is ambulatory, lower extremities are neurovascularly intact and no midline spinal tenderness. No bowel or bladder incontinence, saddle anesthesia, fevers. No direct trauma to the back. We will obtain x-ray lumbar and pelvis given patient's new hip pain. I did review his prior imaging including a lumbar spine on 11/12/2023. Patient is having no urinary symptoms. We will treat pain with Toradol, oxycodone, spasms with the methocarbamol and radiculopathy with prednisone. Lumbar spine x-ray reveals multiple levels of lumbar spine degenerative changes can be seen without acute focal abnormality. Pelvic x-ray reveals generalized degenerative changes of both hips without focal acute abnormality. Patient's pain improved. He was prescribed prednisone, methocarbamol and oxycodone to use for pain, I also recommended Tylenol and ibuprofen however patient will need to stop NSAIDs 1 week before his surgery. Discussed supportive care, gentle stretching, heat therapy. Discussed ED return precautions. Patient verbalized understanding all information and is happy with this plan. He is ambulatory and stable for discharge home. Discharge Plan Departure Patient Disposition: Home Clinical Impression: Acute lumbar radiculopathy, Bilateral hip joint arthritis Lumbar strain Qualifiers: Encounter type: initial encounter Qualified Code(s): S39.012A - Strain of muscle, fascia and tendon of lower back, initial encounter Instructions: DI for Low Back Pain Activity Restrictions/Additional Instructions: Dear Mr. Desai, Thank you for coming to the emergency department. Today you were evaluated for low back pain and bilateral hip pain. Your x-rays revealed degenerative changes throughout the lumbar spine in addition to both hips. You have been treated with a combination of pain medication, muscle relaxers and steroids. You have been prescribed 5 additional days of steroids in addition to oxycodone for severe breakthrough pain and methocarbamol for muscle spasms. I would also like you to use ibuprofen and Tylenol to help with the pain however it is very important never use ibuprofen and meloxicam together and to stop these medications before your surgery. Please take Ibuprofen (Motrin/Advil) or Acetaminophen (Tylenol) for pain. These are available over the counter. You may take Ibuprofen 600 mg every 8 hours with food for pain. You may also take Acetaminophen 650 mg every 4-6 hours for pain. Do not exceed 3000 mg of Tylenol a day as this can cause liver damage. Do not drink alcohol with either of these medications. Please follow up with your primary care doctor within the next 2-3 days for ER follow-up. (If you do not have a PCP you can call [phone]. ?to schedule an appointment with an [facility] Primary Care Provider) IF YOU DEVELOP ANY NEW OR WORSENING SYMPTOMS, RETURN TO THE ER! Please read the attached instructions, they highlight more specific treatments and interventions for you at home. Thank you for letting me participate in your care, Fanny Alvarado PA-C Prescriptions: New oxycodone-acetaminophen 5-325 mg tablet 1 tab PO Q4-6H PRN (Reason: pain) Qty: 12 0RF methocarbamol 500 mg tablet 500 mg PO TID PRN (Reason: Muscle Spasm) Qty: 20 0RF prednisone 20 mg tablet 40 mg PO DAILY 5 Days Qty: 10 0RF No Action pantoprazole 40 mg tablet,delayed release (DR/EC) 40 mg PO BEDTIME Qty: 90 3RF meloxicam 15 mg tablet 7.5 - 15 mg PO DAILY Qty: 90 3RF Spiriva Respimat 1.25 mcg/actuation mist 2 puff PO DAILY Qty: 4 3RF albuterol sulfate 90 mcg/actuation HFA aerosol inhaler 2 puff PO Q6H PRN (Reason: for wheezing) Qty: 8.5 0RF losartan 50 mg tablet 50 mg PO DAILY Qty: 90 3RF cyclobenzaprine 10 mg tablet 10 mg PO HS PRN (Reason: muscle spasm) Qty: 90 3RF triamcinolone acetonide 0.1 % cream 1 applic Topical HS PRN (Reason: dry skin) Qty: 80 1RF Referrals: Johnathan Donis DO [Primary Care Provider, Family Practice] Stand Alone Forms: Patient Portal/API ED Sign-out <Kary Tavarez MD - Last Filed: 02/04/25 19:12> Cosign ED Attending Cosmichelleature Attestation: I was immediately available in the department for consultation throughout this patient's visit. Kary Tavarez MD
[2025-02-02] MEDS: OXYCODONE IR 5 MG TABLET PO (13:37)
[2025-02-02] MEDS: KETOROLAC 30 MG/ML VIAL IM (13:37)
[2025-02-02 14:30] VITALS: BP 168/70; PULSE 68; RESP 16; O2SAT 97
== END 2025-02-02 14:30 | disposition home or self-care (01) ==
PROVIDERS: Emergency Provider Physician Assistant; PCP Family Medicine
DX: M54.16 Radiculopathy, lumbar region (principal); S39.012A Strain of muscle, fascia and tendon of lower back, initial encounter; M16.0 Bilateral primary osteoarthritis of hip
CPT/HCPCS: 72100; 72170; 96372; 99283; J1885

== ENCOUNTER → 2025-02-09 18:56 | Outpatient (CLI) | payer OTHER, SELFPAY | PROVIDERS: PCP Family Medicine; Visit Provider Nurse Practitioner Family | DX: S51.009A Unspecified open wound of unspecified elbow, initial encounter (principal) | CPT/HCPCS: 87070; 87075; 87077; 87147; 87205 ==

== ENCOUNTER → 2025-03-21 11:17 | Outpatient (CLI) | payer OTHER, SELFPAY ==
--- NOTE | 2025-03-21 12:06 | EKG_ITS ---
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
[2025-03-21 12:08] LABS: Add Manual Diff / Slide Review NO; Hematocrit 44.5 % (41-53); Hemoglobin 15.2 g/dL (13.5-17.5); Lymphocytes Absolute Auto 1500 /uL (1100-4500); Mean Corpuscular HGB Conc 34.2 % (30-36); Mean Corpuscular Hemoglobin 33.1 PG (26-34); Mean Corpuscular Volume 96.6 fL (80-100); Platelet Count 320 X10^3/uL (150-400)
[2025-03-21 12:19] LABS: INR 1.0 (0.9-1.3); Prothrombin Time 10.8 SECONDS (9.4-12.5)
[2025-03-21 12:33] LABS: Alanine Aminotransferase 19 IU/L (<50); Albumin 4.0 g/dL (3.5-5.0); Albumin Globulin Ratio 1.6 (1.0-2.8); Alkaline Phosphatase 88 U/L (38-126); Blood Urea Nitrogen 17 mg/dL (9-20); Calcium 9.4 mg/dL (8.4-10.2); Carbon Dioxide 28 mmol/L (22-32); Chloride 103 mmol/L (98-107); Estimated Glomerular Filt Rate > 60 mL/min (>60); Globulin 2.5 g/dL (1.7-4.1); Glucose 104 mg/dL (70-99); HEMOLYSIS < 15 (0-50); Potassium 5.1 mmol/L (3.4-5.1); Sodium 140 mmol/L (137-145); Total Protein 6.5 g/dL (6.3-8.2)
== END ==
PROVIDERS: PCP Family Medicine; Referring Provider Family Medicine; Visit Provider Family Medicine
DX: Z01.818 Encounter for other preprocedural examination (principal)
CPT/HCPCS: 36415; 80053; 85025; 85610; 93005

== ENCOUNTER 2025-05-10 10:25 | Emergency (ER) | payer OTHER, SELFPAY ==
[2025-05-10 10:30] VITALS: BP 139/85; PULSE 100; RESP 14; TEMP 36.7; O2SAT 95; BMI 27.8
--- NOTE | 2025-05-10 12:20 | DI.CT.S_ITS ---
PROCEDURE: CT FACIAL BONES WO CON INDICATIONS: facial injury TECHNIQUE: Noncontrast 2.5 mm thick axial images acquired from the mandible through the frontal sinuses, with coronal and sagittal reformatting. For radiation dose reduction, the following was used: automated exposure control, adjustment of mA and/or kV according to patient size. COMPARISON: None. FINDINGS: Image quality: Excellent. Bones and teeth: Orbital keller are intact. Sinus keller show no fracture or deformity. Nasal bones and septum are intact. Visualized portions of the mandible demonstrate no fractures or subluxation. Zygomatic arches are intact. Pterygoid plates are intact. Visualized portions of the skull base and auditory canals are intact. Sinuses: Paranasal sinuses are aerated, without fluid levels, mucosal thickening, or mucoceles. Mastoid air cells are aerated. Soft tissues: Right periorbital swelling and laceration.. No enlarged lymph nodes. No soft tissue lacerations or debris. Vascular: Visualized vascular structures appear normal in the absence of contrast. Bony vascular foramina and canals are intact. IMPRESSION: No acute facial fractures. Dictated by: Ruperto Tellez M.D. on 05/10/2025 at 13:25 Approved by: Ruperto Tellez M.D. on 05/10/2025 at 13:27
--- NOTE | 2025-05-10 12:20 | DI.CT.S_ITS ---
PROCEDURE: CT HEAD/BRAIN WO CON INDICATIONS: facial injury TECHNIQUE: Noncontrast 4.5 mm thick angled axial sections acquired from the foramen magnum to the vertex, with coronal and sagittal reformats. For radiation dose reduction, the following was used: automated exposure control, adjustment of mA and/or kV according to patient size. COMPARISON: None. FINDINGS: Image quality: Diagnostic. CSF spaces: Basal cisterns are patent. No extra-axial fluid collections. The ventricles are symmetric in size and shape. Brain: No intracranial bleeds or mass effect. There is cerebral volume loss, with resultant ventricular and sulcal prominence. There are periventricular and deep white matter chronic small vessel ischemic changes. There is intracranial internal carotid artery atherosclerosis. Skull and face: Right periorbital swelling and laceration. Calvarium and visualized facial bones appear intact, without suspicious lesions. Sinuses: Visualized sinuses and mastoids are clear. IMPRESSION: No acute intracranial pathology. Dictated by: Ruperto Tellez M.D. on 05/10/2025 at 13:23 Approved by: Ruperto Tellez M.D. on 05/10/2025 at 13:25
--- NOTE | 2025-05-10 12:20 | DI.CT.S_ITS ---
PROCEDURE: CT CERVICAL SPINE WO CON INDICATIONS: facial injury TECHNIQUE: Noncontrast 3 mm thick sections acquired from the skull base to the T4 level. Sagittal and coronal reformats were then constructed. For radiation dose reduction, the following was used: automated exposure control, adjustment of mA and/or kV according to patient size. COMPARISON: None. FINDINGS: Image quality: Excellent. Bones: No fractures or dislocations. Multilevel degenerative changes of the spine. Visualized superior ribs are intact. Soft tissues: Prevertebral soft tissues are normal in thickness. No paravertebral hematomas. No apical pneumothoraces. IMPRESSION: No displaced fracture or traumatic subluxation. Dictated by: Ruperto Tellez M.D. on 05/10/2025 at 13:27 Approved by: Ruperto Tellez M.D. on 05/10/2025 at 13:28
[2025-05-10] MEDS: TET,DIPH,PERTUSS(ACELL),VAC/PF 0.5 ML SYRINGE IM (12:35)
[2025-05-10 14:54] VITALS: BP 131/73; PULSE 92; RESP 16; O2SAT 92
--- NOTE | 2025-05-10 16:52 | ED.WOUNDLAC ---
HPI - Wound/Laceration <Gaby Irby PA-C - Last Filed: 05/10/25 17:02> General Chief Complaint: Wound/Laceration Stated Complaint: Cut above right eye, Possible stitches Time Seen by Provider: 05/10/25 10:28 Source: patient Mode of arrival: Ambulatory History of Present Illness HPI narrative: 74-year-old male presents to the ED status post a brow laceration sustained at midnight last night. Patient states that he was walking to the bathroom, when he stumbled over his cane causing him to strike his right brow against the door frame. No loss of consciousness. Patient is not on blood thinners. Bleeding was controlled with pressure. No nausea, vomiting. No other symptoms. Last tetanus is unknown. Related Data Home Medications ?Medication ?Instructions ?Recorded ?Confirmed pantoprazole 40 mg tablet,delayed 40 mg PO DAILY 02/23/25 05/02/25 release Previous Rx's ?Medication ?Instructions ?Recorded triamcinolone acetonide 0.1 % 1 applic topical HS PRN dry skin 12/09/24 topical cream #80 grams albuterol sulfate 90 mcg/actuation 2 puff PO Q6H PRN for wheezing 01/31/25 aerosol inhaler #8.5 grams DISABLED PARKING PERMIT #1 ea 02/08/25 tiotropium bromide 1.25 2 puff PO DAILY #4 grams 03/27/25 mcg/actuation mist for inhalation (Spiriva Respimat) losartan 50 mg tablet 50 mg PO DAILY #90 tabs 04/21/25 methocarbamol 500 mg tablet 500 mg PO TID PRN Muscle Spasm #30 05/02/25 tabs Allergies Allergy/AdvReac Type Severity Reaction Status Date / Time lactose (LACTOSE) AdvReac Intermediate BLOATED Verified 05/10/25 10:30 Review of Systems <Gaby Irby PA-C - Last Filed: 05/10/25 17:02> Constitutional Constitutional: Denies chills, Denies fatigue, Denies fever(s), Denies frequent falls, Denies lethargy and Denies weakness Eyes Eyes: Denies change in vision, Denies eye discharge, Denies irritation and Denies loss of vision ENT Ears, Nose, Mouth, and Throat: Denies change in voice, Denies dizziness, Denies neck pain, Denies sore throat and Denies throat swelling Cardiovascular Cardiovascular: Denies chest pain, Denies irregular heart rhythm, Denies lightheadedness, Denies palpitations, Denies dyspnea, Denies dyspnea on exertion and Denies orthopnea Respiratory Respiratory: Denies cough, Denies dyspnea, Denies dyspnea on exertion and Denies wheezing Gastrointestinal Gastrointestinal: Denies abdominal pain, Denies change in bowel habits, Denies diarrhea, Denies nausea and Denies vomiting Musculoskeletal Musculoskeletal: Denies neck pain and Denies numbness Integumentary/Breasts Skin/Breast: Denies pruritus, Denies erythema, Denies rash and Denies wounds Comments: Laceration on right brow Neurologic Neurologic: Denies behavioral changes, Denies confusion, Denies dizziness, Denies frequent falls, Denies loss of vision, Denies numbness and Denies weakness Psychiatric Psychiatric: Denies anxiety, Denies behavioral changes, Denies confusion, Denies depression, Denies homicidal ideation and Denies suicidal ideation Endocrine Endocrine: Denies fatigue, Denies flushing and Denies palpitations Hematologic/Lymphatic Hematologic/Lymphatic: Denies easy bruising Allergic/Immunologic Allergic/Immunologic: Denies urticaria, Denies throat swelling and Denies wheezing Patient History <Gaby Irby PA-C - Last Filed: 05/10/25 17:02> Medical History History of elevated PSA Use of proton pump inhibitor therapy Preoperative clearance Elbow wound Facial dermatitis Lumbar disc disease with radiculopathy Chronic low back pain with bilateral sciatica Cranial somatic dysfunction Tension headache Squamous cell metaplasia of urinary bladder Bladder diverticulum Benign prostatic hyperplasia with lower urinary tract symptoms Elevated PSA Lower urinary tract symptoms Lesion of bladder Tobacco abuse Gross hematuria Arthritis Rib pain COPD (chronic obstructive pulmonary disease) Shortness of breath at rest Hand pain, left Tobacco abuse counseling Wheezing Chronic cough Sebaceous cyst Actinic keratoses Plantar fasciitis of left foot Constipation due to opioid therapy Rupture of left rotator cuff Trigger finger of both hands Benign prostatic hyperplasia Hyperlipidemia, mixed Joint pain in both hands Dermatochalasis of both eyelids Segmental and somatic dysfunction of upper extremity Cervical somatic dysfunction Left arm pain Cervicothoracic somatic dysfunction Segmental and somatic dysfunction of thoracic region Chronic neck pain Acute upper back pain Undescended right testicle Umbilical hernia (~04/2012) BPH (benign prostatic hyperplasia) Hypertension Actinic keratosis Anxiety GERD (gastroesophageal reflux disease) Fracture of left tibia and fibula Surgical History History of urologic surgery (07/21/23) History of orchiectomy H/O circumcision History of esophagogastroduodenoscopy (EGD) (05/2009) Hx of hernia repair (04/2012) History of open reduction and internal fixation (ORIF) procedure Family History Father Prostate cancer Colon cancer Hearing impairment Hypertension UTI (urinary tract infection) Brother Cancer Mother Stroke Cancer Diabetes mellitus Hyperlipidemia Hypertension UTI (urinary tract infection) History of kidney stones Social History marital status: number of children: 4 household members: spouse occupational status: previously employed and other Smoking Status: Current every day smoker Tobacco: How many years used: 54 Smokeless tobacco user: other alcohol intake: current substance use type: does not use caffeine: Yes Type(s) of exercise: other frequency: 1-2 times per week duration: > 90 minutes/day Smoking Status: Current every day smoker tobacco type: cigarettes alcohol intake frequency: 0-2 drinks per day Exam <Gaby Irby PA-C - Last Filed: 05/10/25 17:02> Narrative Exam Narrative: Const General:?cooperative, healthy appearing and comfortable [facility] Head:?normal to inspection Ears:?hearing grossly normal bilaterally Nose:?external nose normal Face and sinus:?normal facial exam and sinuses nontender Mouth:?oral mucosae normal Throat:?posterior oropharynx normal Eyes General:?appearance normal, both eyes and all related structures Neck Neck:?normal visual inspection and no lymphadenopathy noted Resp Effort & Inspection:?normal respiratory effort Auscultation:?clear to auscultation bilaterally Cardio Rate:?regular rate Rhythm:?regular rhythm Integumentary There is a 5 cm linear, vertical laceration that extends from the right brow upwards. No deeper structures visualized on exam. Bleeding controlled with pressure. Brow bone is tender to palpation. Neuro General:?patient alert, patient awake and patient oriented x3 Initial Vital Signs Initial Vital Signs: Vital Signs Temperature 98.0 F 05/10/25 10:30 Pulse Rate 100 H 05/10/25 10:30 Respiratory Rate 14 10/29/25 10:30 Blood Pressure 139/85 05/10/25 10:30 Pulse Oximetry 95 05/10/25 10:30 Oxygen Delivery Method Room Air 05/10/25 10:30 <Gilbert Hilton MD - Last Filed: 05/11/25 09:49> Initial Vital Signs Initial Vital Signs: Vital Signs Temperature 98.0 F 05/10/25 10:30 Pulse Rate 100 H 05/10/25 10:30 Respiratory Rate 14 05/10/25 10:30 Blood Pressure 139/85 05/10/25 10:30 Pulse Oximetry 95 05/10/25 10:30 Oxygen Delivery Method Room Air 05/10/25 10:30 Procedures <Gaby Irby PA-C - Last Filed: 05/10/25 17:02> Laceration Repair Laceration 1: Site: face Side (If applicable): right Size (cm): 5 Description: linear Depth: simple, single layer Local Anesthetic: lidocaine 1% and with epi Amount of anesthesia used (mL): 4 Pre-repair: wound explored, irrigated extensively and deep structures intact Skin layer closed with: nylon Skin layer suture size: 5-0 Number of sutures: 6 Technique: simple, interrupted Course <Gaby Irby PA-C - Last Filed: 05/10/25 17:02> Orders Ordered: Discontinued Medications Diphtheria/Tetanus/Acell Pertussis (Tet,Diph,Pertuss(Acell),Vac/Pf 0.5 Ml Syringe) 0.5 ml IM .ONCE ONE Stop: 05/10/25 12:22 Last Admin: 05/10/25 12:35 Dose: 0.5 ml Documented By: MARJ Vital Signs Vital signs: Vital Signs - 8 hr 05/10/25 10:30 05/10/25 14:54 Temperature 98.0 F Pulse Rate 100 H 92 H Respiratory Rate 14 16 Blood Pressure 139/85 131/73 Pulse Oximetry 95 92 Oxygen Delivery Method Room Air Room Air <Gilbert Hilton MD - Last Filed: 05/11/25 09:49> Orders Ordered: Discontinued Medications Diphtheria/Tetanus/Acell Pertussis (Tet,Diph,Pertuss(Acell),Vac/Pf 0.5 Ml Syringe) 0.5 ml IM .ONCE ONE Stop: 05/10/25 12:22 Last Admin: 05/10/25 12:35 Dose: 0.5 ml Documented By: MARJ Vital Signs Vital signs: Vital Signs - 8 hr 05/10/25 10:30 05/10/25 14:54 Temperature 98.0 F Pulse Rate 100 H 92 H Respiratory Rate 14 16 Blood Pressure 139/85 131/73 Pulse Oximetry 95 92 Oxygen Delivery Method Room Air Room Air MDM - Wound/Laceration <Gaby Irby PA-C - Last Filed: 05/10/25 17:02> [facility] Narrative Medical decision making narrative: 74-year-old male presents to the ED status post a brow laceration sustained at midnight last night. Concern for laceration versus intracranial hemorrhage versus fracture versus other. Will obtain CT head, CT C-spine, CT facial bones. CT scans without acute findings. Tetanus was updated. Wound was irrigated and laceration repaired with 6 sutures. Wound care, suture removal discussed with patient. ED return precautions discussed with patient. Patient verbalized understanding. Medical records reviewed: Yes Discharge Plan Departure Patient Disposition: Home Clinical Impression: Laceration Instructions: DI for Laceration Repair Activity Restrictions/Additional Instructions: You were evaluated in the emergency room today for a facial injury. The CT scans were normal. The cut on your brow was cleaned and repaired with 6 sutures. The sutures will need to be removed in 5-7 days. You may return to the ED, go to a walk-in clinic or your PCP's office for suture removal. Please keep the wound clean and dry for the 1st 24 hours, following which you may wash gently with soap and water and completely dry prior to applying a dressing. Please watch for signs of infection including worsening pain, swelling, redness, discharge, warmth. Return to the ED if you note any signs of infection. Your tetanus has been updated today which will be valid for the next 10 years. Prescriptions: No Action albuterol sulfate 90 mcg/actuation HFA aerosol inhaler 2 puff PO Q6H PRN (Reason: for wheezing) Qty: 8.5 0RF Spiriva Respimat 1.25 mcg/actuation mist 2 puff PO DAILY Qty: 4 3RF losartan 50 mg tablet 50 mg PO DAILY Qty: 90 1RF methocarbamol 500 mg tablet 500 mg PO TID PRN (Reason: Muscle Spasm) Qty: 30 1RF triamcinolone acetonide 0.1 % cream 1 applic Topical HS PRN (Reason: dry skin) Qty: 80 1RF (DME) DISABLED PARKING PERMIT See Rx Instructions .ROUTE .MEDSUPPLY Qty: 1 0RF Rx Instructions: I find this patient to be medically disabled and qualified for disabled parking as indicated, and signed, on the accompanying Disabled Parking Application for Individuals. pantoprazole 40 mg tablet,delayed release (DR/EC) 40 mg PO DAILY Referrals: Johnathan Donis, DO [Primary Care Provider, Family Practice] Stand Alone Forms: Patient Portal/API ED Sign-out <Gilbert Hilton MD - Last Filed: 05/11/25 09:49> Cosign ED Attending Cosignature Attestation: I was immediately available in the department for consultation. ?This documentation has been reviewed and I agree with assessment and plan. Supervised by Gilbert Hilton MD
== END 2025-05-10 14:55 | disposition home or self-care (01) ==
PROVIDERS: Emergency Provider Student in an Organized Health Care Education/Training Program; PCP Family Medicine
DX: S01.111A Laceration without foreign body of right eyelid and periocular area, initial encounter (principal); W22.8XXA Striking against or struck by other objects, initial encounter; Z23 Encounter for immunization
CPT/HCPCS: 12013; 70450; 70486; 72125; 90471; 99284; 90715

== ENCOUNTER → 2025-05-13 11:55 | Outpatient (CLI) | payer OTHER, SELFPAY | PROVIDERS: PCP Family Medicine; Visit Provider Nurse Practitioner Family | DX: R82.90 Unspecified abnormal findings in urine (principal) | CPT/HCPCS: 87077; 87086; 87186 ==

== ENCOUNTER → 2025-05-28 10:37 | Outpatient (CLI) | payer OTHER, SELFPAY | PROVIDERS: PCP Family Medicine; Visit Provider Chiropractor | DX: R30.0 Dysuria (principal) | CPT/HCPCS: 87077; 87086 ==

== ENCOUNTER → 2025-06-20 16:11 | Outpatient (CLI) | payer OTHER, SELFPAY ==
--- NOTE | 2025-06-20 16:12 | DI.MRI.S_ITS ---
PROCEDURE: MR CERVICAL SPINE WO CON INDICATIONS: Neck pain TECHNIQUE: Noncontrast sagittal T1 spin echo and T2 fast spin echo, sagittal STIR, foraminal oblique sagittal T2 fast spin echo, and axial gradient echo or T2 fast spin echo through the cervical spine. COMPARISON: [facility], CR, XR CERVICAL SPINE WITH FLEXION EXTENSION, 06/07/2025, 9:31. , CT, CT CERVICAL SPINE WO CON, 05/10/2025, 12:28. FINDINGS: Image quality: Excellent. Alignment and Curvature: There is trace anterolisthesis of C4 on C5, C5 on C6. Bone Marrow: Marrow demonstrates normal overall signal. Reactive endplate changes are present at C6-7. Spinal Cord: Visualized spinal cord has normal size and signal. No cerebellar tonsillar herniation. Paraspinous Soft Tissues: No paravertebral masses. Prevertebral soft tissues are normal in thickness. Discs: Multilevel disc desiccation, most severe at C6-7. C2-C3: Mild disc bulge without spinal stenosis. Moderate bilateral foraminal narrowing with uncovertebral hypertrophy. C3-C4: Mild disc bulge without spinal stenosis. Severe left and moderate to severe right foraminal narrowing with uncovertebral hypertrophy. C4-C5: Mild disc bulge with effacement the anterior thecal sac. Minimal left and mild right foraminal narrowing with uncovertebral hypertrophy. C5-C6: Mild disc bulge with effacement of the anterior thecal sac. Minimal to mild bilateral foraminal narrowing with uncovertebral hypertrophy. C6-C7: Mild disc bulge including a right lateral component. [id number] spinal stenosis. Moderate right and mild left foraminal narrowing with uncovertebral hypertrophy. C7-T1: Mild disc bulge without spinal stenosis. Minimal right foraminal narrowing. IMPRESSION: Multilevel degenerative changes stable compared to 05/10/2025. Multilevel disc bulges. Multilevel foraminal narrowing most severe at C3-4 secondary to uncovertebral arthropathy. Dictated by: Yuliana Faria M.D. on 06/21/2025 at 9:32 Approved by: Yuliana Faria M.D. on 06/21/2025 at 9:36
--- NOTE | 2025-06-20 16:12 | DI.MRI.S_ITS ---
PROCEDURE: MR LUMBAR SPINE WO CON INDICATIONS: lumbar strain TECHNIQUE: Noncontrast sagittal T1 spin echo and T2 fast echo, sagittal STIR, and T2 fast spin echo through the lumbar spine. In cases with scoliosis, additional coronal T2 fast spin echo may be performed. COMPARISON: [facility], MR, MR LUMBAR SPINE WO CON, 03/10/2025, 20:15. FINDINGS: Image quality: Excellent. Alignment and Curvature: Mild retrolisthesis of L1 on L2 and L2 on L3. Bone Marrow: Multilevel degenerative endplate changes, most pronounced at L2- L3. No acute vertebral body compression fractures. Spinal Cord: Conus medullaris terminates at the L1 level. Visualized cord demonstrates normal signal and size. Paraspinous Soft Tissues: No paravertebral masses. Simple appearing bilateral renal cysts. T12-L1: Disc desiccation and facet arthropathy. No central canal or neural foraminal stenosis. L1-L2: Disc desiccation and height loss. Mild disc bulge. Facet arthropathy. Epidural lipomatosis. Mild central canal stenosis. Moderate bilateral neural foraminal stenosis. Stable compared to prior. L2-L3: Disc desiccation and moderate height loss. Large disc extrusion extending inferiorly appears increased compared to prior. Prior hemilaminotomy changes on the left. There is at least moderate to severe central canal stenosis given increased size of disc extrusion. Facet arthropathy. Moderate to severe bilateral neural foraminal stenosis is similar to prior. L3-L4: Disc desiccation and moderate height loss. Mild disc bulge. Facet arthropathy. Left hemilaminotomy changes. Mild residual central canal stenosis, improved compared to prior. Moderate to severe bilateral neural foraminal stenosis is stable. L4-L5: Disc desiccation and mild diffuse disc bulge. Facet arthropathy. Moderate central canal stenosis. Moderate to severe right and moderate left lateral recess stenosis. Moderate bilateral neural foraminal stenosis. L5-S1: Facet arthropathy. No central canal or neural foraminal stenosis. IMPRESSION: 1. Interval postsurgical changes at L2-L3 and L3-L4. Disc extrusion at L2-L3 appears to have increased in size with persistent moderate to severe central canal stenosis. 2. Mild central canal stenosis at L3-L4 is improved. 3. Degenerative changes at other levels are stable compared to prior. 4. Stable moderate to severe bilateral neural foraminal stenosis at L2-L3 and L3-L4. Dictated by: Ruperto Tellez M.D. on 06/21/2025 at 9:19 Approved by: Ruperto Tellez M.D. on 06/21/2025 at 9:34
== END ==
LOC: MRI 16:11
PROVIDERS: PCP Family Medicine; Referring Provider Family Medicine; Visit Provider Physician Assistant Surgical
DX: M47.812 Spondylosis without myelopathy or radiculopathy, cervical region (principal); M50.31 Other cervical disc degeneration, high cervical region; M48.02 Spinal stenosis, cervical region; M51.26 Other intervertebral disc displacement, lumbar region; M47.816 Spondylosis without myelopathy or radiculopathy, lumbar region; M47.817 Spondylosis without myelopathy or radiculopathy, lumbosacral region; M48.061 Spinal stenosis, lumbar region without neurogenic claudication; M51.369 Other intervertebral disc degeneration, lumbar region without mention of lumbar back pain or lower extremity pain; S39.012D Strain of muscle, fascia and tendon of lower back, subsequent encounter; R26.81 Unsteadiness on feet; Z98.890 Other specified postprocedural states
CPT/HCPCS: 72141; 72148